=== PATIENT | female | born 1985 | race African-American/Black ===

== ENCOUNTER 2016-09-02 09:04 | Emergency (ER) | payer OTHER ==
[2016-09-02] MEDS ORDERED: NORMAL SALINE 1000 ML 1,000 ML IV ONE (09:53)
--- NOTE | 2016-09-02 09:58 | ER Document Report ---
ED General - General Chief Complaint: Vaginal Bleeding Stated Complaint: VAGINAL BLEEDING Notes: This is a 31-year-old female that presents today with vaginal bleeding that started this morning. She states that at 0430 this morning she was getting ready for work, and she went to the bathroom to urinate. She noticed bright red blood on the toilet tissue. She then took a shower and the bleeding stopped. However at work at 0900, she again noticed blood on the tissue paper after wiping. She estimates approximately a teaspoon of blood both times. She admits to hypogastric and mid pelvic pain with no radiation. Denies nausea vomiting fever or chills. She is 12 weeks and follows with [facility]. TRAVEL OUTSIDE OF THE [place] IN LAST 30 DAYS: No COUNTRY TRAVELED TO/FROM: [facility] - Related Data Allergies/Adverse Reactions: No Known Allergies Allergy (Verified 08/04/16 18:40) Past Medical History - General Information source: Patient Last Menstrual Period: 05-25-16 - Social History Smoking Status: Never Smoker Chew tobacco use (# tins/day): No Frequency of alcohol use: None Drug Abuse: None Family History: Reviewed & Not Pertinent Patient has suicidal ideation: No Patient has homicidal ideation: No - Past Medical History Cardiac Medical History: Reports: Hx Hypertension Surgical Hx: Negative - Immunizations Hx Diphtheria, Pertussis, Tetanus Vaccination: Yes Review of Systems - Review of Systems Constitutional: denies: Chills, Fever EENT: denies: Blurred vision Cardiovascular: denies: Chest pain Respiratory: denies: Short of breath Gastrointestinal: Abdominal pain - hypogastric and mid pelvic.. denies: Vomiting, Black stools Female Genitourinary: Musculoskeletal: denies: Leg swelling, Ankle swelling Hematologic/Lymphatic: denies: Anemia Physical Exam - Vital signs Vitals: Temp Pulse Resp BP Pulse Ox 98.1 F 73 18 135/86 H 100 09/02/16 09:07 09/02/16 09:07 09/02/16 09:07 09/02/16 09:07 09/02/16 09:07 - General General appearance: Appears well - Respiratory Respiratory status: No respiratory distress. No: Retractions Chest status: Nontender. No: Tender Breath sounds: Normal. No: Rales, Rhonchi, Stridor, Wheezing - Cardiovascular Rhythm: Regular Heart sounds: Normal auscultation, S1 appreciated, S2 appreciated - Abdominal Inspection: Normal Distension: No: Distended Bowel sounds: Normal Tenderness: Tender - hypogastric and mid pelvis. - Back Back: Normal. No: Tender - Extremities General lower extremity: Normal inspection. No: Edema - No edema bilaterally. - Psychological Associated symptoms: Normal affect - Skin Skin Temperature: Warm Skin Moisture: Dry Skin Color: Normal Course - Re-evaluation Re-evalutation: 09/02/16 13:00 Patient stated that she has a follow-up appointment with [facility] September 12. She was made aware of both the cyst and fibroids on transvaginal ultrasound. She was given multiple opportunities to ask questions. - Vital Signs Vital signs: Temp Pulse Resp BP Pulse Ox 97.4 F 80 15 123/73 98 09/02/16 12:40 09/02/16 12:40 09/02/16 12:40 09/02/16 12:40 09/02/16 12:40 - Laboratory Result Diagrams: 09/02/16 10:05 09/02/16 10:05 Laboratory results interpreted by me: 09/02/16 09/02/16 09/02/16 10:05 10:05 11:45 WBC 12.0 H Seg Neutrophils % 82.5 H Lymphocytes % 12.0 L Absolute Neutrophils 9.9 H BUN 6 L Beta HCG, Quant 91977.00 H Urine Ketones 20 H Discharge - Discharge Clinical Impression: Adnexal mass Uterine fibroid Qualifiers: Uterine leiomyoma location: intramural Qualified Code(s): D25.1 - Intramural leiomyoma of uterus Condition: Stable Disposition: HOME, SELF-CARE Additional Instructions: Follow-up with mold burner and primary care physician. Return to emergency department if symptoms worsen. Discuss with your mold burner the findings on ultrasound. Referrals: VICTOR HUGO CABRERA MD [Primary Care Provider] - Follow up as needed
[2016-09-02 10:21] LABS: ABSOLUTE LYMPHOCYTES (AUTO) 1.4 10^3/uL (0.5-4.7); ABSOLUTE MONOCYTES (AUTO) 0.6 10^3/uL (0.1-1.4); ABSOLUTE NEUT (AUTO) 9.9 10^3/uL (1.7-8.2); BASOPHILS % (AUTO) 0.2 % (0-2); EOSINOPHILS % (AUTO) 0.2 % (0-6); HEMATOCRIT 37.1 % (36.0-47.0); HEMOGLOBIN 12.8 g/dL (12.0-15.5); HGB HCT DIFFERENCE 1.3; MEAN CORPUSCULAR HEMOGLOBIN 28.9 pg (27.0-33.4); MEAN CORPUSCULAR HGB CONC 34.4 g/dL (32.0-36.0); MEAN CORPUSCULAR VOLUME 84 fl (80-97); MONOCYTES % (AUTO) 5.1 % (3-13); RED BLOOD COUNT 4.42 10^6/uL (3.72-5.28); RED CELL DISTRIBUTION WIDTH 12.8 % (11.5-14.0); SEGMENTED NEUTROPHILS % (AUTO) 82.5 % (42-78)
[2016-09-02 10:37] LABS: PARTIAL THROMBOPLASTIN TIME 27.2 SEC (23.5-35.8); PROTHROMBIN TIME 13.6 SEC (11.4-15.4)
[2016-09-02 10:41] LABS: ALANINE AMINOTRANSFERASE 38 U/L (9-52); ALBUMIN 3.6 g/dL (3.5-5.0); ALKALINE PHOSPHATASE 72 U/L (38-126); ANION GAP 11 (5-19); ASPARTATE AMINO TRANSFERASE 18 U/L (14-36); BILIRUBIN,TOTAL 0.6 mg/dL (0.2-1.3); BLOOD UREA NITROGEN 6 mg/dL (7-20); CARBON DIOXIDE 25 mmol/L (22-30); CHLORIDE 102 mmol/L (98-107); CREATININE RESULT 0.61 mg/dL (0.52-1.25); GLUCOSE 80 mg/dL (75-110); SODIUM 137.8 mmol/L (137-145); TOTAL PROTEIN 6.7 g/dL (6.3-8.2)
[2016-09-02 12:41] LABS: APPEARANCE,URINE CLEAR; BILIRUBIN,URINE NEGATIVE (NEGATIVE); GLUCOSE, URINE NEGATIVE (NEGATIVE); KETONES,URINE 20 mg/dL (NEGATIVE); LEUKOCYTE ESTERASE,URINE NEGATIVE (NEGATIVE); NITRITE,URINE NEGATIVE (NEGATIVE); PROTEIN,URINE NEGATIVE (NEGATIVE); URINE SPECIFIC GRAVITY 1.009; UROBILINOGEN,URINE NEGATIVE mg/dL (<2.0)
[2016-09-02 13:38] VITALS: BP 123/73
== END 2016-09-02 12:40 | disposition home or self-care (01) ==
LOC: ER 09:04
DX: O34.11 Maternal care for benign tumor of corpus uteri, first trimester (principal); D25.1 Intramural leiomyoma of uterus; O34.81 Maternal care for other abnormalities of pelvic organs, first trimester; N83.292 Other ovarian cyst, left side; O26.891 Other specified pregnancy related conditions, first trimester; R10.2 Pelvic and perineal pain; O16.1 Unspecified maternal hypertension, first trimester; Z3A.12 12 weeks gestation of pregnancy
CPT/HCPCS: 99284; 96360; 86900; 86901; 36415; 86850; 84702; 85025; 85610; 85730; 80053; 81001; 76801; 93976; J7030

== ENCOUNTER 2016-10-15 15:28 | Emergency (ER) | payer OTHER ==
--- NOTE | 2016-10-15 16:06 | ER Document Report ---
ED Medical Screen (RME) - General Chief Complaint: Abdominal Pain Stated Complaint: ABDOMINAL PAIN Time seen by provider: 16:03 Mode of Arrival: Ambulatory Information source: Patient Notes: 31-year-old hypertensive (tx with methyldopa) G1 female 19 weeks ( no complications so far) developed constant sharp right lower quadrant abdominal pain all she was at work. No back pain. No nausea vomiting or diarrhea. No vaginal bleeding. When she urinated and the pain worse. No history of kidney stones. No Fever. Last ultrasound was the 2015. Primary care provider is [facility] I have greeted and performed a rapid initial assessment of this patient. A comprehensive ED assessment, evaluation of the patient, analysis of test results , and completion of the medical decision making process will be conducted by additional ED providers.. TRAVEL OUTSIDE OF THE [place] IN LAST 30 DAYS: No COUNTRY TRAVELED TO/FROM: [facility] - Related Data Allergies/Adverse Reactions: No Known Allergies Allergy (Verified 08/04/16 18:40) Past Medical History - Past Medical History Cardiac Medical History: Reports: Hx Hypertension - Immunizations Hx Diphtheria, Pertussis, Tetanus Vaccination: Yes Physical Exam - Vital signs Vitals: Temp Pulse Resp BP Pulse Ox 98.3 F 84 18 114/67 98 10/15/16 15:48 10/15/16 15:48 10/15/16 15:48 10/15/16 15:48 10/15/16 15:48 Course - Vital Signs Vital signs: Temp Pulse Resp BP Pulse Ox 98.3 F 84 18 114/67 98 10/15/16 15:48 10/15/16 15:48 10/15/16 15:48 10/15/16 15:48 10/15/16 15:48
[2016-10-15 17:28] LABS: ABSOLUTE EOSINOPHILS # (AUTO) 0.1 10^3/uL (0.0-0.6); ABSOLUTE LYMPHOCYTES (AUTO) 1.5 10^3/uL (0.5-4.7); ABSOLUTE MONOCYTES (AUTO) 0.7 10^3/uL (0.1-1.4); ABSOLUTE NEUT (AUTO) 11.7 10^3/uL (1.7-8.2); BASOPHILS % (AUTO) 0.2 % (0-2); EOSINOPHILS % (AUTO) 0.4 % (0-6); HEMATOCRIT 36.7 % (36.0-47.0); HEMOGLOBIN 12.5 g/dL (12.0-15.5); HGB HCT DIFFERENCE 0.8; LYMPHOCYTES % (AUTO) 10.8 % (13-45); MEAN CORPUSCULAR HGB CONC 34.1 g/dL (32.0-36.0); MEAN CORPUSCULAR VOLUME 85 fl (80-97); MONOCYTES % (AUTO) 5.2 % (3-13); RED BLOOD COUNT 4.31 10^6/uL (3.72-5.28); RED CELL DISTRIBUTION WIDTH 13.1 % (11.5-14.0); SEGMENTED NEUTROPHILS % (AUTO) 83.4 % (42-78); WHITE BLOOD COUNT 14.1 10^3/uL (4.0-10.5)
[2016-10-15 17:43] LABS: ALANINE AMINOTRANSFERASE 20 U/L (9-52); ALKALINE PHOSPHATASE 80 U/L (38-126); ANION GAP 10 (5-19); ASPARTATE AMINO TRANSFERASE 18 U/L (14-36); BILIRUBIN,TOTAL 0.7 mg/dL (0.2-1.3); BLOOD UREA NITROGEN 6 mg/dL (7-20); CALCIUM 9.5 mg/dL (8.4-10.2); CARBON DIOXIDE 23 mmol/L (22-30); CHLORIDE 104 mmol/L (98-107); CREATININE RESULT 0.58 mg/dL (0.52-1.25); GLUCOSE 77 mg/dL (75-110); SODIUM 136.5 mmol/L (137-145); TOTAL PROTEIN 6.9 g/dL (6.3-8.2)
[2016-10-15] MEDS ORDERED: ACETAMINOPHEN 325 MG TABLET PO ONE (18:31)
--- NOTE | 2016-10-15 18:33 | ER Document Report ---
ED GI/ - General Chief Complaint: Abdominal Pain Stated Complaint: ABDOMINAL PAIN Time seen by provider: 18:32 Mode of Arrival: Ambulatory Information source: Patient TRAVEL OUTSIDE OF THE [place] IN LAST 30 DAYS: No COUNTRY TRAVELED TO/FROM: [facility] - HPI Patient complains to provider of: Pelvic pain, Onset: This morning Timing/Duration: Persistent Quality of pain: Sharp, Stabbing Severity at maximum: Severe Severity in ED: Moderate Pain Level: 5 Location: Pelvis Vaginal bleeding (Compared to normal period): None Menstrual period history: Associated symptoms: None Exacerbated by: Movement, Walking Relieved by: Denies Similar symptoms previously: No Recently seen / treated by doctor: Yes Notes: 10/15/16 18:32 Patient is a 31-year-old female who is in approximately 19 weeks presenting to the emergency room complaining of sharp stabbing right-sided pelvic pain that started this morning, it has worsened throughout the day, she denies any vaginal bleeding or discharge, no nausea, vomiting or diarrhea, no fever or chills, she does report pain with urination, she denies a history of similar symptoms previously, she is followed by [facility] and has had an uneventful until today - Related Data Allergies/Adverse Reactions: No Known Allergies Allergy (Verified 08/04/16 18:40) Past Medical History - General Information source: Patient - Social History Smoking Status: Unknown if Ever Smoked Family History: Reviewed & Not Pertinent Patient has suicidal ideation: No Patient has homicidal ideation: No - Past Medical History Cardiac Medical History: Reports: Hx Hypertension Renal/ Medical History: Denies: Hx Peritoneal Dialysis - Immunizations Hx Diphtheria, Pertussis, Tetanus Vaccination: Yes Review of Systems - Review of Systems Constitutional: No symptoms reported EENT: No symptoms reported Cardiovascular: No symptoms reported Respiratory: No symptoms reported Gastrointestinal: No symptoms reported Genitourinary: See HPI Female Genitourinary: See HPI Musculoskeletal: No symptoms reported Skin: No symptoms reported Hematologic/Lymphatic: No symptoms reported Neurological/Psychological: No symptoms reported -: Yes All other systems reviewed and negative Physical Exam - Vital signs Vitals: Temp Pulse Resp BP Pulse Ox 98.3 F 84 18 114/67 98 10/15/16 15:48 10/15/16 15:48 10/15/16 15:48 10/15/16 15:48 10/15/16 15:48 Interpretation: Normal - General General appearance: Appears well, Alert - HEENT Head: Normocephalic, Atraumatic Eyes: Normal Pupils: PERRL - Respiratory Respiratory status: No respiratory distress Chest status: Nontender Breath sounds: Normal Chest palpation: Normal - Cardiovascular Rhythm: Regular Heart sounds: Normal auscultation Murmur: No - Abdominal Inspection: Normal, Gravid female Distension: No distension Bowel sounds: Normal Tenderness: Tender - Right pelvis Organomegaly: No organomegaly - Back Back: Normal, Nontender - Extremities General upper extremity: Normal inspection, Nontender, Normal color, Normal ROM , Normal temperature General lower extremity: Normal inspection, Nontender, Normal color, Normal ROM , Normal temperature, Normal weight bearing. No: Gene's sign - Neurological Neuro grossly intact: Yes Cognition: Normal Orientation: AAOx4 Breezy Coma Scale Eye Opening: Spontaneous [place] Coma Scale Verbal: Oriented [place] Coma Scale Motor: Obeys Commands Breezy Coma Scale Total: 15 Speech: Normal Motor strength normal: LUE, RUE, LLE, RLE Sensory: Normal - Psychological Associated symptoms: Normal affect, Normal mood - Skin Skin Temperature: Warm Skin Moisture: Dry Skin Color: Normal Course - Re-evaluation Re-evalutation: 10/15/16 19:22 Patient was discussed with on-call CORRECTIONAL PROGRAM SPECIALIST, Dr. Reyes, labs, physical exam findings and ultrasound findings were discussed with her, she recommends patient be started on Indocin and Carafate for treatment of her likely involuting fibroid, which she states can be painful while the uterus is stretching and growing from , she recommends patient also follow-up in the office tomorrow or the next day for further evaluation and treatment, this plan was discussed with patient and mother at bedside who acknowledge understanding and agreement - Vital Signs Vital signs: Temp Pulse Resp BP Pulse Ox 98.3 F 84 18 114/67 98 10/15/16 15:48 10/15/16 15:48 10/15/16 15:48 10/15/16 15:48 10/15/16 15:48 - Laboratory Result Diagrams: 10/15/16 17:14 10/15/16 17:14 Laboratory results interpreted by me: 10/15/16 10/15/16 10/15/16 17:14 17:14 18:39 WBC 14.1 H Seg Neutrophils % 83.4 H Lymphocytes % 10.8 L Absolute Neutrophils 11.7 H Sodium 136.5 L BUN 6 L Urine Ketones 80 H Urine Ascorbic Acid 40 H - Diagnostic Test Radiology reviewed: Image reviewed, Reports reviewed Discharge - Discharge Clinical Impression: Pelvic pain affecting Uterine fibroid Qualifiers: Uterine leiomyoma location: unspecified location Qualified Code(s): D25.9 - Leiomyoma of uterus, unspecified Condition: Stable Disposition: HOME, SELF-CARE Instructions: Pelvic Pain in ([facility] ([facility]) Additional Instructions: Follow up with your CORRECTIONAL PROGRAM SPECIALIST in the next 1-2 days. Return to the emergency room immediately if symptoms worsen or any additional concerns. Prescriptions: Indomethacin [Indocin 25 Mg Capsule] 25 mg PO TID #30 capsule Sucralfate [Carafate Susp 1 Gm/10 Ml Udcup] 1 gm PO DAILY #30 udc Forms: Return to Work
[2016-10-15 18:50] LABS: APPEARANCE,URINE SLIGHTLY-CLOUDY; BILIRUBIN,URINE NEGATIVE (NEGATIVE); GLUCOSE, URINE NEGATIVE (NEGATIVE); KETONES,URINE 80 mg/dL (NEGATIVE); LEUKOCYTE ESTERASE,URINE NEGATIVE (NEGATIVE); NITRITE,URINE NEGATIVE (NEGATIVE); PROTEIN,URINE NEGATIVE (NEGATIVE); URINE SPECIFIC GRAVITY 1.019; UROBILINOGEN,URINE NEGATIVE mg/dL (<2.0)
[2016-10-15] MEDS ORDERED: SUCRALFATE SUSP 1 GM/10 ML UDCUP PO ONE (19:25)
[2016-10-15] MEDS ORDERED: INDOMETHACIN 25 MG CAPSULE PO ONE (19:30)
[2016-10-15 19:40] VITALS: BP 131/76
== END 2016-10-15 19:40 | disposition home or self-care (01) ==
LOC: ER 15:28
DX: O34.13 Maternal care for benign tumor of corpus uteri, third trimester (principal); O26.893 Other specified pregnancy related conditions, third trimester; D25.9 Leiomyoma of uterus, unspecified; R10.2 Pelvic and perineal pain; O16.3 Unspecified maternal hypertension, third trimester; Z3A.00 Weeks of gestation of pregnancy not specified
CPT/HCPCS: 36415; 76705; 76815; 80053; 81001; 85025; 86900; 86901; 87086; 99284

== ENCOUNTER 2016-10-22 15:18 | Inpatient (IN) | payer OTHER ==
--- NOTE | 2016-10-22 16:01 | L&D Flow Sheet ---
LD Flowsheet Datetime Report Generated by CPN: 10/22/2016 16:00 Datetime: 10/22/2016 15:55 Vaginal Exam Vaginal Bleeding: None (Katrina Shiv, RNC)
[2016-10-22 16:31] LABS: AMNISURE (ROM) POSITIVE (NEGATIVE)
[2016-10-22 16:40] LABS: APPEARANCE,URINE SLIGHTLY-CLOUDY; BILIRUBIN,URINE NEGATIVE (NEGATIVE); GLUCOSE, URINE NEGATIVE (NEGATIVE); KETONES,URINE NEGATIVE (NEGATIVE); LEUKOCYTE ESTERASE,URINE NEGATIVE (NEGATIVE); NITRITE,URINE NEGATIVE (NEGATIVE); PROTEIN,URINE NEGATIVE (NEGATIVE); URINE SPECIFIC GRAVITY 1.005; UROBILINOGEN,URINE NEGATIVE mg/dL (<2.0)
[2016-10-22 17:00] LABS: URINE BARBITURATES SCREEN NEGATIVE; URINE METHADONE SCREEN NEGATIVE; URINE OPIATES LOW NEGATIVE; URINE PHENCYCLIDINE SCREEN NEGATIVE
[2016-10-22 17:26] LABS: ABSOLUTE LYMPHOCYTES (AUTO) 2.1 10^3/uL (0.5-4.7); ABSOLUTE MONOCYTES (AUTO) 0.8 10^3/uL (0.1-1.4); ABSOLUTE NEUT (AUTO) 10.9 10^3/uL (1.7-8.2); BASOPHILS % (AUTO) 0.2 % (0-2); EOSINOPHILS % (AUTO) 0.3 % (0-6); HEMATOCRIT 37.2 % (36.0-47.0); HEMOGLOBIN 12.7 g/dL (12.0-15.5); HGB HCT DIFFERENCE 0.9; LYMPHOCYTES % (AUTO) 15.3 % (13-45); MEAN CORPUSCULAR HGB CONC 34.2 g/dL (32.0-36.0); MEAN CORPUSCULAR VOLUME 85 fl (80-97); RED BLOOD COUNT 4.39 10^6/uL (3.72-5.28); RED CELL DISTRIBUTION WIDTH 13.1 % (11.5-14.0); SEGMENTED NEUTROPHILS % (AUTO) 78.2 % (42-78); WHITE BLOOD COUNT 13.9 10^3/uL (4.0-10.5)
--- NOTE | 2016-10-22 18:01 | L&D Flow Sheet ---
LD Flowsheet Datetime Report Generated by CPN: 10/22/2016 18:00 Datetime: 10/22/2016 17:20 Communication Comments: Dr Reyes at bedside (Sonali Rudd RN) Datetime: 10/22/2016 16:52 NBP Sys/Kayy/Mean (mmHg): 120 (Sonali Rudd RN) : 75 (Sonali Rudd RN) : 86 (Sonali Rudd RN) Pulse: 101 (Sonali Rudd RN) Respirations: 18 (Sonali Rudd RN) SpO2 (%): 99 (Sonali Rudd RN) Temperature (F): 97.9 (Sonali Rudd RN) Temperature (C): 36.6 (QS system process) Temperature Route: Axillary (Sonali Rudd RN) LaborFlag: Antepartum (QS system process) Datetime: 10/22/2016 16:45 Additional Nursing Comments: Report to Sonali Rudd RN care relinquished. (GABRIELE Candelaria) Datetime: 10/22/2016 16:40 Consults: ultrasound at bedside. FHT 150's. Pt and family questioning what happens now. Plan of care discussed. Dr. Mercado consulting Clinton Cardenas regarding possible transfer. (GABRIELE Candelaria) Datetime: 10/22/2016 16:32 Dilatation (cm): 2.0 (Katrina Chaney, RNC) Effacement (%): 50 (Katrina Chaney, RNC) Station: -2 (Katrina Chaney RNNaga) Exam by: tony Saeed CNM (Katrina Chaney, RNNaga) Membrane Status: Ruptured (GABRIELE Candelaria) Membranes Ruptured Date/Time: 10/22/2016 14:30 (GABRIELE Candelaria) Membranes Rupture Method: Spontaneous (GABRIELE Candelaria) Amniotic Fluid Color: Clear (Katrina Chaney, RNC) Cervix, Consistency: Soft (Katrina Chaney, RNC) Cervix, Position: Anterior (Katrina Chaney, RNC) Presentation 'A': Breech (GABRIELE Candelaria) Vaginal Exam Comments: vag exam per tony saeed cnm (Katrina Chaney, RNC) Dilatation (cm): 1-2 cm (Katrina Chaney, RNC) Effacement: 40-50_ effaced (Katrina Chaney, RNC) Station: minus 2 (Katrina Chaney, RNC) Consistency: Soft (Katrina Chaney, RNC) Position: Midposition (Katrina Chaney, RNC) Total Frank's Score: 6 (QS system process) : 5-8 = Small percentage of induction failure (QS system process) Level of Consciousness: Fully Conscious (Katrina Chaney, RNC) Patient Position/Activity: Right Lateral (Katrina Chaney, RNC) Patient Care Comments: provider at bedside (GABRIELE Candelaria) Datetime: 10/22/2016 16:30 Monitor Mode: External US (Katrina Chaney RNC) FHR Baseline Rate : 150 (Annotations: unable to keep tracing continuous. Appears to be deceling to the 50's. Maternal pulse 76. A Emmel CNM notified.) (Katrina Chaney, RNC) Datetime: 10/22/2016 16:10 Frequency (min): 0 (Katrina Chaney, RNC) Resting Tone (Palpate): Relaxed (Annotations: palpated) (Katrina Chaney RNC) Pain Scale: 0 (Katrina Chaney RNC) Pain Presence: None/Denies (Katrina Chaney, RNC) Pain Type: N/A (Katrina Chaney, RNC) Pain Coping: Talking Through Contractions (Katrina Chaney RNC) Vaginal Bleeding: None (Katrina Chaney, RNC) Level of Consciousness: Fully Conscious (Katrina Chaney, RNC) DTR's/Clonus: DTRs 2+ (Katrina Chaney, RNC) Headache: Denies (Katrina Chaney, RNC) Breath Sounds, Left: Clear and Equal (Katrina Chaney, RNC) Breath Sounds, Right: Clear and Equal (Katrina Shiv, RNC) Nausea/Vomiting: Denies (Katrina Chaney, RNC) RUQ Epigastric Pain: Denies (Katrina Chaney, RNC) LaborFlag: Antepartum (QS system process) Datetime: 10/22/2016 16:04 Stage of : Antepartum (Sonali Rudd, SHUKRI)
[2016-10-22] MEDS: RINGERS SOLUTION,LACTATED 1,000 ML IV PRN (18:47)
--- NOTE | 2016-10-22 20:01 | L&D Flow Sheet ---
LD Flowsheet Datetime Report Generated by CPN: 10/22/2016 20:00 Datetime: 10/22/2016 19:30 Monitor Mode: External; Palpation (Crystal [place], RN) Frequency (min): 5-5.5 (Crystal [place], RN) Quality: Mild (Crystal Keysha, RN) Duration (sec): 50-60 (Crystal [place], RN) Duration Criteria: Less than Two 120 Second Contractions (Crystal [place], RN) Resting Tone (Palpate): Relaxed (Crystal [place], RN) Patient Position/Activity: Semi-Fowlers (Crystal Keysha, RN) I/O Interventions: Clear Liquids Given (Crystal [place], RN) Datetime: 10/22/2016 19:29 Level of Consciousness: Fully Conscious (Crystal Keysha, RN) DTR's/Clonus: DTRs 2+; No Clonus (Crystal Keysha, RN) Headache: Denies (Crystal Keysha, RN) Breath Sounds, Left: Clear and Equal (Crystal [place], RN) Breath Sounds, Right: Clear and Equal (Crystal [place], RN) Nausea/Vomiting: Denies (Crystal [place], RN) Datetime: 10/22/2016 19:00 Monitor Mode: External; Palpation (Sonali Tobin, RN) Frequency (min): Irreg (Sonali Tobin, RN) Quality: Mild (Sonali Tobin, RN) Duration (sec): 30-50 (Sonali Tobin, RN) Resting Tone (Palpate): Relaxed (Sonali Tobin, RN) Datetime: 10/22/2016 18:58 Patient Care Comments: Meal provided (Sonali Tobin, RN) Datetime: 10/22/2016 18:30 Monitor Mode: External; Palpation (Sonali Tobin, RN) Frequency (min): Irreg (Sonali Tobin, RN) Quality: Mild (Sonali Tobin, RN) Duration (sec): 30-40 (Sonali Tobin, RN) Resting Tone (Palpate): Relaxed (Sonali Tobin, RN) Datetime: 10/22/2016 18:18 Patient Care Comments: SCD applied (Sonali Tobin, RN) Datetime: 10/22/2016 18:01 Communication Comments: Brandyn Freed CNM at bedside (Sonali Rudd RN) Datetime: 10/22/2016 18:00 Temperature (F): 98.3 (Sonali Rudd RN) Temperature (C): 36.8 (QS system process) Temperature Route: Oral (Sonali Rudd RN) Monitor Mode: External; Palpation (Sonali Rudd RN) Frequency (min): Irreg (Sonali Rudd RN) Quality: Mild (Sonali Rudd RN) Duration (sec): 30-40 (Sonali Rudd RN) Resting Tone (Palpate): Relaxed (Sonali Rudd RN) LaborFlag: Antepartum (QS system process)
[2016-10-22] MEDS ORDERED: METHYLDOPA 250 MG TABLET ONE (21:24)
[2016-10-22] MEDS ORDERED: METHYLDOPA 250 MG TABLET PO SCH (22:00)
--- NOTE | 2016-10-22 22:01 | L&D Flow Sheet ---
LD Flowsheet Datetime Report Generated by CPN: 10/22/2016 22:00 Datetime: 10/22/2016 21:30 Monitor Mode: External; Palpation (Crystal Novi, RN) Frequency (min): Irregular (Crystal Novi, RN) Quality: Mild (Crystal Novi, RN) Resting Tone (Palpate): Relaxed (Crystal Keysha, RN) Contraction Comments: Pt denies feeling any contractions. (Crystal Keysha, RN) Datetime: 10/22/2016 21:26 Medication Comments: 250 mg Aldomet PO per order. (Crystal Keysha, RN) Datetime: 10/22/2016 21:00 Monitor Mode: External; Palpation (Crystal Keysha, RN) Frequency (min): Irregular (Crystal Keysha, RN) Quality: Mild (Crystal Keysha, RN) Duration (sec): 40-60 (Crystal Keysha, RN) Resting Tone (Palpate): Relaxed (Crystal Keysha, RN) Contraction Comments: Pt denies feeling any contractions or pain. (Crystal Keysha, RN) Datetime: 10/22/2016 20:30 Monitor Mode: External; Palpation (Crystal Keysha, RN) Frequency (min): Irregular (Crystal Novi, RN) Quality: Mild (Crystal Novi, RN) Resting Tone (Palpate): Relaxed (Crystal Keysha, RN) Patient Position/Activity: Trendelenburg (Crystal Keysha, RN) Datetime: 10/22/2016 20:00 NBP Sys/Kayy/Mean (mmHg): 123 (Crystal Keysha, RN) : 75 (Crystal Keysha, RN) Pulse: 79 (Crystal Novi, RN) Respirations: 18 (Crystal Keysha, RN) SpO2 (%): 100 (Crystal Novi, RN) Temperature (F): 98.0 (Crystal Novi, RN) Temperature (C): 36.7 (QS system process) Monitor Mode: External; Palpation (Kristi Chopra, RN) Frequency (min): IRR (Kristi Novi, RN) Quality: Mild (Crystal Novi, RN) Duration (sec): 40-60 (Crystal Keysha, RN) Resting Tone (Palpate): Relaxed (Kristi Keysha, RN) Contraction Comments: Pt denies feeling any contractions. (Kristi Chopra, RN) Nausea/Vomiting: Denies (Kristi Chopra, RN) Patient Position/Activity: Trendelenburg (Kristi Chopra, RN) LaborFlag: Antepartum (QS system process)
--- NOTE | 2016-10-23 07:45 | L&D Progress Notes ---
PROGRESS NOTES Datetime Report Generated by CPN: 10/23/2016 07:45 PROGRESS NOTE Impression: Premature Rupture of Membranes Procedures: Sterile Vag Exam Plan: Induction Informed Consent Obtained: Vaginal Delivery; Risks, Benefits and Alternatives Discussed Vital Signs : Reviewed; Within Normal Limits Comment: Unable to find FHR on bedside doppler this am. Bedside US done and anhydramnios with no FHR noted. Formal US requested for evaluation and report returned as No FHR noted. REviewed IOL with pt and also reviewed degenerating fibroid with pt. Pain meds as needed. Will try cytotec 50mcg po q 4 hours and change indxn meds as needed. Pt tearful but understands diagnosis. membranes and cord already in vagina. Reviewed poss need for D_C if need for removal of placenta. Nursing aware and we will try to move pt to a more isolated room away from laboring patients. VAGINAL EXAM Dilatation: 1 Effacement: 25 Station: -3 MEMBRANES Membranes: Ruptured Amniotic Fluid Color: Clear FETUS A Monitoring: External US SIGNATURE SIGNATURE: [id number] Signature: with User ID: [email or web address]
[2016-10-23 07:51] LABS: ABSOLUTE LYMPHOCYTES (AUTO) 1.4 10^3/uL (0.5-4.7); ABSOLUTE MONOCYTES (AUTO) 0.7 10^3/uL (0.1-1.4); ABSOLUTE NEUT (AUTO) 10.5 10^3/uL (1.7-8.2); BASOPHILS % (AUTO) 0.2 % (0-2); EOSINOPHILS % (AUTO) 0.4 % (0-6); HEMATOCRIT 30.9 % (36.0-47.0); HEMOGLOBIN 10.8 g/dL (12.0-15.5); HGB HCT DIFFERENCE 1.5; LYMPHOCYTES % (AUTO) 10.9 % (13-45); MEAN CORPUSCULAR HEMOGLOBIN 29.4 pg (27.0-33.4); MEAN CORPUSCULAR HGB CONC 34.9 g/dL (32.0-36.0); MEAN CORPUSCULAR VOLUME 84 fl (80-97); MONOCYTES % (AUTO) 5.9 % (3-13); RED BLOOD COUNT 3.67 10^6/uL (3.72-5.28); RED CELL DISTRIBUTION WIDTH 12.9 % (11.5-14.0); SEGMENTED NEUTROPHILS % (AUTO) 82.6 % (42-78); WHITE BLOOD COUNT 12.7 10^3/uL (4.0-10.5)
[2016-10-23] MEDS ORDERED: MISOPROSTOL 0.1 MG TABLET PO SCH (08:00)
--- NOTE | 2016-10-23 08:01 | L&D Flow Sheet ---
LD Flowsheet Datetime Report Generated by CPN: 10/23/2016 08:00 Datetime: 10/23/2016 07:12 Stage of : Antepartum (Crystal [place], RN) Communication: Report Given to @ Chintan Whitmore, RN (Crystal Keysha, RN) Notification Reason: Status Update (Crystal Keysha, RN) Datetime: 10/23/2016 06:36 Frequency (min): 0 (Crystal [place], RN) Resting Tone (Palpate): Relaxed (Crystal Keysha, RN) Contraction Comments: Pt denies feeling any contractions. (Crystal Keysha, RN) Datetime: 10/23/2016 05:32 Communication Comments: Dr. Reyes at bedside for u/s (Savannah Santacruz RN) Datetime: 10/23/2016 04:12 NBP Sys/Kayy/Mean (mmHg): 121 (Kristi Godwinergrass, RN) : 73 (Crystal [place], RN) Pulse: 71 (Crystal [place], RN) Respirations: 18 (Crystal [place], RN) SpO2 (%): 100 (Crystal [place], RN) Temperature (F): 98.3 (Crystal [place], RN) Temperature (C): 36.8 (QS system process) Comments: RN attemped too assess FHR with doppler. (Kristi Chopra, RN) LaborFlag: Antepartum (QS system process) Datetime: 10/23/2016 04:00 Monitor Interventions for UA: Crumpler Adjusted (Crystal [place], RN) Frequency (min): 0 (Crystal Keysha, RN) Contraction Comments: Pt denies any contractions at this time (Crystal [place], RN) Datetime: 10/23/2016 03:00 Monitor Mode: External; Palpation (Crystal [place], RN) Frequency (min): 0 (Crystal [place], RN) Resting Tone (Palpate): Relaxed (Crystal [place], RN) Contraction Comments: Pt denies feeling any contractions. (Crystal Keysha, RN) Datetime: 10/23/2016 02:00 Monitor Mode: External; Palpation (Crystal Keysha, RN) Frequency (min): 0 (Crystal Keysha, RN) Resting Tone (Palpate): Relaxed (Crystal Keysha, RN) Contraction Comments: Pt denies feeling any contractions. (Crystal [place], RN) Datetime: 10/23/2016 01:30 Monitor Mode: External; Palpation (Crystal Keysha, RN) Frequency (min): 0 (Crystal Keysha, RN) Resting Tone (Palpate): Relaxed (Crystal Keysha, RN) Contraction Comments: Pt denies feeling any contractions at this time. (Crystal [place], RN) Datetime: 10/23/2016 01:00 Monitor Mode: External; Palpation (Crystal Keysha, RN) Frequency (min): 0 (Crystal Keysha, RN) Resting Tone (Palpate): Relaxed (Crystal [place], RN) Contraction Comments: Pt denies feeling any contractions at this time. (Crystal [place], RN) Datetime: 10/23/2016 00:30 Monitor Mode: External; Palpation (Crystal [place], RN) Frequency (min): 0 (Crystal Keysha, RN) Resting Tone (Palpate): Relaxed (Crystal [place], RN) Datetime: 10/23/2016 00:00 Monitor Mode: External; Palpation (Crystal Keysha, RN) Frequency (min): 0 (Crystal [place], RN) Resting Tone (Palpate): Relaxed (Crystal Keysha, RN) Datetime: 10/22/2016 23:58 NBP Sys/Kayy/Mean (mmHg): 120/76 (Marita Danish, RN) Pulse: 70 (Marita Danish, RN) Respirations: 14 (Marita Danish, RN) Temperature (F): 98.3 (Marita Danish, RN) Temperature (C): 36.8 (QS system process) Temperature Route: Oral (Marita Danish, RN) LaborFlag: Antepartum (QS system process) Datetime: 10/22/2016 22:30 Monitor Mode: External; Palpation (Crystal [place], RN) Frequency (min): Irregular (Crystal Keysha, RN) Quality: Mild (Crystal Keysha, RN) Resting Tone (Palpate): Relaxed (Crystal Keysha, RN) Contraction Comments: Pt denies feeling any contractions at this time (Crystal [place], RN) Datetime: 10/22/2016 22:00 Monitor Mode: Palpation (Crystal Keysha, RN) Frequency (min): 0 (Crystal Keysha, RN) Resting Tone (Palpate): Relaxed (Crystal Keysha, RN) Contraction Comments: Pt denies feeling any contractions at this time. pt reported light pink spots on her tissue after wiping. Will continue to monitor (Kristi Chopra RN) Patient Position/Activity: Supine (Kristi Chopra RN) I/O Interventions: Clear Liquids Given (Kristi Chopra RN)
[2016-10-23] MEDS ORDERED: MISOPROSTOL 0.1 MG TABLET ONE ×5 (08:10→19:56)
[2016-10-23] MEDS ORDERED: (PENDING PHARMACY ID) (Prenatal Vit/Iron Fumarate/Fa [Prenatal Tablet] 1 TAB) PO SCH (10:00)
[2016-10-23] MEDS ORDERED: PRENATAL VITAMIN W-O CA NO5/FE FUMARATE/FA CAPSULE PO SCH (10:00)
--- NOTE | 2016-10-23 10:01 | L&D Flow Sheet ---
LD Flowsheet Datetime Report Generated by CPN: 10/23/2016 10:00 Datetime: 10/23/2016 09:00 Monitor Mode: External (Gema Haim, RNC) Frequency (min): Irr (Gema Haim, RNC) Quality: Mild (Gema Haim, RNC) Duration (sec): 40-50 (Gema Haim, RNC) Duration Criteria: Less than Two 120 Second Contractions (Gema Haim, RNC) Pattern: Normal: <= 5 Contractions in 10 Minutes (Gema Haim, RNC) Resting Tone (Palpate): Relaxed (Gema Haim, RNC) Datetime: 10/23/2016 08:20 Cervical Ripening Agents: Cytotec @ 50 mcg, PO (Gema Whitmore, RNC) Datetime: 10/23/2016 08:18 NBP Sys/Kayy/Mean (mmHg): 125 (QS system process) : 85 (QS system process) : 99 (QS system process) Pulse: 81 (QS system process) Temperature (F): 98.0 (Gema Whitmore, RNC) Temperature (C): 36.7 (QS system process) Temperature Route: Oral (Gema Whitmore, RNC) LaborFlag: Antepartum (QS system process) Datetime: 10/23/2016 08:12 Level of Consciousness: Fully Conscious (Gema Whitmore, RNC) DTR's/Clonus: DTRs 2+; No Clonus (Gema Whitmore, RNC) Headache: Denies (Gema Whitmore, RNC) Breath Sounds, Left: Clear and Equal (Gema Whitmore, RNC) Breath Sounds, Right: Clear and Equal (Gema Whitmore, RNC) Nausea/Vomiting: Denies (Gema Whitmore, RNC) RUQ Epigastric Pain: Denies (Gema Whitmore, RNC)
--- NOTE | 2016-10-23 12:01 | L&D Flow Sheet ---
LD Flowsheet Datetime Report Generated by CPN: 10/23/2016 12:00 Datetime: 10/23/2016 11:30 Monitor Mode: External (Gema Haim, RNC) Frequency (min): Irr (Gema Haim, RNC) Quality: Mild (Gema Haim, RNC) Duration (sec): 50-80 (Gema Haim, RNC) Duration Criteria: Less than Two 120 Second Contractions (Gema Haim, RNC) Resting Tone (Palpate): Relaxed (Gema Haim, RNC) Datetime: 10/23/2016 11:20 NBP Sys/Kayy/Mean (mmHg): 127 (QS system process) : 84 (QS system process) : 98 (QS system process) Pulse: 90 (QS system process) Respirations: 17 (Gema Haim, RNC) Temperature (F): 98.3 (Gema Haim, RNC) Temperature (C): 36.8 (QS system process) Temperature Route: Oral (Gema Haim, RNC) LaborFlag: Antepartum (QS system process) Datetime: 10/23/2016 11:00 Monitor Mode: External (Gema Haim, RNC) Frequency (min): Irr (Gema Haim, RNC) Duration (sec): 50-80 (Gema Haim, RNC) Resting Tone (Palpate): Relaxed (Gema Haim, RNC) Datetime: 10/23/2016 10:30 Monitor Mode: External (Gema Haim, RNC) Frequency (min): Irr (Gema Haim, RNC) Duration (sec): 30-50 (GABRIELE Paz) Resting Tone (Palpate): Relaxed (GABRIELE Paz) Datetime: 10/23/2016 10:00 Monitor Mode: External (GABRIELE Paz) Frequency (min): Irr (GABRIELE Paz) Resting Tone (Palpate): Relaxed (GABRIELE Paz)
[2016-10-23] MEDS ORDERED: METHYLDOPA 250 MG TABLET ONE (12:40)
[2016-10-23] MEDS ORDERED: SUCCINYLCHOLINE CHLORIDE INJ 200 MG/10 ML VIAL ONE (13:20)
--- NOTE | 2016-10-23 16:01 | L&D Flow Sheet ---
LD Flowsheet Datetime Report Generated by CPN: 10/23/2016 16:00 Datetime: 10/23/2016 15:30 Monitor Mode: External (Gema Haim, RNC) Frequency (min): 3-5 (Gema Haim, RNC) Duration (sec): 50-80 (Gema Haim, RNC) Resting Tone (Palpate): Relaxed (Gema Haim, RNC) Datetime: 10/23/2016 15:00 Monitor Mode: External (Gema Haim, RNC) Frequency (min): 2-+4 (Gema Haim, RNC) Quality: Mild (Gema Haim, RNC) Duration (sec): 30-50 (Gema Haim, RNC) Resting Tone (Palpate): Relaxed (Gema Haim, RNC) Datetime: 10/23/2016 14:30 Frequency (min): Irr (Gema Haim, RNC) Duration (sec): 20-40 (Gema Haim, RNC) Datetime: 10/23/2016 14:00 Monitor Mode: External (Gema Haim, RNC) Frequency (min): Irr (Gema Haim, RNC) Duration (sec): 20-30 (Gema Haim, RNC) Resting Tone (Palpate): Relaxed (Gema Haim, RNC) Datetime: 10/23/2016 13:30 Frequency (min): Irritability (Gema Haim, RNC) Duration (sec): 20-40 (Gema Haim, RNC) Datetime: 10/23/2016 13:00 Frequency (min): Irr (Gema Haim, RNC) Duration (sec): 20-40 (Gema Haim, RNC) Datetime: 10/23/2016 12:30 Monitor Mode: External (Gema Haim, RNC) Frequency (min): x1 (Gema Haim, RNC) Quality: Mild (Gema Haim, RNC) Duration (sec): 80 (Gema Whitmore, RNC) Resting Tone (Palpate): Relaxed (Gema Haim, RNC) Cervical Ripening Agents: Cytotec @ 50 mcg PO (GABRIELE Paz) Datetime: 10/23/2016 12:21 Dilatation (cm): 2.0 (GABRIELE Paz) Exam by: Dr. Estevez (Gema Whitmore, RNC) Cervical Ripening Agents: Cytotec @ 100 mcg PV (GABRIELE Paz) Communication: Provider at Bedside (GABRIELE Paz) Communication Comments: Dr. Estevez at BS, POC discussed with pt and family, all questions and concerns answered by MD and RN. Both pt and family verbalzied understanding and agreement with POC. (Gema Whitmore RNC)
[2016-10-23] MEDS ORDERED: MISOPROSTOL 0.2 MG TABLET ONE ×2 (16:10→19:57)
--- NOTE | 2016-10-23 18:01 | L&D Flow Sheet ---
LD Flowsheet Datetime Report Generated by CPN: 10/23/2016 18:00 Datetime: 10/23/2016 16:15 NBP Sys/Kayy/Mean (mmHg): 130 (QS system process) : 85 (QS system process) : 102 (QS system process) Pulse: 75 (QS system process) LaborFlag: Antepartum (QS system process)
[2016-10-23] MEDS ORDERED: PROMETHAZINE HCL INJ 25 MG/1 ML VIAL IV ONE ×2 (18:14→20:10)
[2016-10-23] MEDS ORDERED: NALBUPHINE HCL INJ 10 MG/1 ML AMPULE ONE ×2 (18:15→20:16)
[2016-10-23] MEDS ORDERED: PROMETHAZINE HCL INJ 25 MG/1 ML VIAL ONE ×2 (18:15→20:16)
[2016-10-23] MEDS ORDERED: NALBUPHINE HCL INJ 10 MG/1 ML AMPULE INJ ONE ×2 (18:15→20:10)
[2016-10-23] MEDS ORDERED: MISOPROSTOL 0.1 MG TABLET PO ONE (19:42)
[2016-10-23] MEDS ORDERED: MISOPROSTOL 0.2 MG TABLET PV ONE (19:42)
[2016-10-23] MEDS ORDERED: OXYTOCIN/NORMAL SALINE 0 UNIT/0 ML RTUINJ ONE (19:42)
[2016-10-23] MEDS ORDERED: AMPICILLIN SOD/SULBACTAM 3 GM VIAL IV ONE (20:00)
--- NOTE | 2016-10-23 20:01 | L&D Flow Sheet ---
LD Flowsheet Datetime Report Generated by CPN: 10/23/2016 20:00 Datetime: 10/23/2016 19:55 NBP Sys/Kayy/Mean (mmHg): 133 (QS system process) : 80 (QS system process) : 102 (QS system process) Pulse: 97 (QS system process) LaborFlag: Antepartum (QS system process) Datetime: 10/23/2016 19:40 NBP Sys/Kayy/Mean (mmHg): 148 (QS system process) : 97 (QS system process) : 118 (QS system process) Pulse: 114 (QS system process) LaborFlag: Antepartum (QS system process) Datetime: 10/23/2016 19:34 Communication Comments: Called Herb and let her know we need her to come to the unit. Provider on her way in. (Vero Paul RN) Datetime: 10/23/2016 19:20 Level of Consciousness: Lethargy (Annotations: Due to med given at 1830) (Marita Peng RN) Patient Care Comments: Pt had been sleeping soundly but tosses occasionally. Aroused for Josue Whitmore RN to say good by and for me to introduce myself. Instructed to report any increase in pressure on bottom. (Marita Peng, SHUKRI) Communication Comments: Report to Saul Peng RN, Josue Whitmore RNC out. (GABRIELE Paz) Datetime: 10/23/2016 19:00 Monitor Mode: External (Gema Haim, RNC) Frequency (min): irr (Gema Haim, RNC) Duration (sec): 20-40 (Gema Haim, RNC) Resting Tone (Palpate): Relaxed (Gema Haim, RNC) Datetime: 10/23/2016 18:30 Monitor Mode: External (Gema Haim, RNC) Frequency (min): irr (Gema Haim, RNC) Duration (sec): 20-40 (Gema Haim, RNC) Resting Tone (Palpate): Relaxed (Gema Haim, RNC) Datetime: 10/23/2016 18:29 Analgesics/Sedatives: Nubain (mg) @ 10, IVP; Phenergan (mg) @ 12.5, SIVP (Gema Whitmore RNC) Datetime: 10/23/2016 18:06 NBP Sys/Kayy/Mean (mmHg): 140 (QS system process) : 79 (QS system process) : 105 (QS system process) Pulse: 82 (QS system process) Respirations: 17 (GABRIELE Paz) Temperature (F): 99.0 (GABRIELE Paz) Temperature (C): 37.2 (QS system process) Temperature Route: Oral (GABRIELE Paz) Pain Scale: 4 (GABRIELE Paz) Pain Presence: Intermittent (Gema Whitmore RNC) Pain Type: Sharp; Contraction (Gema Whitmore RNC) Pain Location: Perineum (Gema Whitmore RNC) LaborFlag: Antepartum (QS system process) Datetime: 10/23/2016 18:00 Monitor Mode: External (Gema Whitmore RNC) Frequency (min): 3-4 (GABRIELE Paz) Duration (sec): 20-+40 (GABRIELE Paz) Resting Tone (Palpate): Relaxed (GABRIELE Paz)
[2016-10-23] MEDS ORDERED: AMPICILLIN SOD/SULBACTAM 3 GM VIAL ONE (20:09)
[2016-10-23] MEDS ORDERED: OXYTOCIN 10 UNIT/ML VIAL ONE (20:36)
[2016-10-23] MEDS ORDERED: FENTANYL CITRATE INJ/PF 250 MCG/5 ML AMPULE ONE (20:37)
[2016-10-23] MEDS ORDERED: OXYTOCIN/NORMAL SALINE 20 UNIT/1,000 ML RTUINJ ONE (20:37)
[2016-10-23] MEDS ORDERED: MIDAZOLAM 2 MG/2 ML INJ ONE (20:37)
[2016-10-23] MEDS ORDERED: FENTANYL CITRATE INJ/PF 100 MCG/2 ML AMPUL ONE (20:37)
[2016-10-23] MEDS ORDERED: EPHEDRINE SULFATE INJ 50 MG/1 ML AMPULE ONE (20:37)
[2016-10-23] MEDS ORDERED: ONDANSETRON HCL INJ/PF 4 MG/2 ML SDV ONE (20:37)
[2016-10-23] MEDS ORDERED: PROPOFOL INJ 200 MG/20 ML VIAL IV ONE (20:39)
[2016-10-23 21:48] LABS: HEMATOCRIT 24.9 % (36.0-47.0); HGB HCT DIFFERENCE 1.2; MEAN CORPUSCULAR HEMOGLOBIN 29.4 pg (27.0-33.4); MEAN CORPUSCULAR HGB CONC 35.1 g/dL (32.0-36.0); MEAN CORPUSCULAR VOLUME 84 fl (80-97); RED BLOOD COUNT 2.97 10^6/uL (3.72-5.28); RED CELL DISTRIBUTION WIDTH 12.6 % (11.5-14.0); WHITE BLOOD COUNT 18.1 10^3/uL (4.0-10.5)
--- NOTE | 2016-10-23 22:01 | L&D Flow Sheet ---
LD Flowsheet Datetime Report Generated by CPN: 10/23/2016 22:00 Datetime: 10/23/2016 21:59 NBP Sys/Kayy/Mean (mmHg): 146 (QS system process) : 81 (QS system process) : 107 (QS system process) Pulse: 121 (QS system process) Pulse: 117 (QS system process) SpO2 (%): 100 (QS system process) Datetime: 10/23/2016 21:54 NBP Sys/Kayy/Mean (mmHg): 143 (QS system process) : 78 (QS system process) : 104 (QS system process) Pulse: 127 (QS system process) Pulse: 126 (QS system process) SpO2 (%): 100 (QS system process) Datetime: 10/23/2016 21:49 Stage of : Recovery (Marita Peng RN) NBP Sys/Kayy/Mean (mmHg): 169 (QS system process) : 93 (QS system process) : 123 (QS system process) Pulse: 144 (QS system process) SpO2 (%): 98 (QS system process) Datetime: 10/23/2016 21:48 SpO2 (%): 82 (QS system process) LaborFlag: Antepartum (QS system process) Datetime: 10/23/2016 20:19 NBP Sys/Kayy/Mean (mmHg): 117 (QS system process) : 74 (QS system process) : 90 (QS system process) Pulse: 113 (QS system process) LaborFlag: Antepartum (QS system process) Datetime: 10/23/2016 20:18 Communication Comments: Spoke with Wendy, Sampling Expert, and informed her that per Dr. Estevez pt needs to go to OR for D_C due to bleeding. (Annotations: Data stored by [facility] on behalf of user) (Vero Paul RN) Datetime: 10/23/2016 20:14 Antibiotics: Unasyn (Gm) @ 3 (Alicia Errichiello, RN) Datetime: 10/23/2016 20:10 NBP Sys/Kayy/Mean (mmHg): 125 (QS system process) : 73 (QS system process) : 94 (QS system process) Pulse: 86 (QS system process) LaborFlag: Antepartum (QS system process) Datetime: 10/23/2016 20:00 Cervical Ripening Agents: Cytotec @ (Rosalind Estevez MD (ANDDO)) Cervical Ripening Agents: Cytotec @ 200 mcg pv (Marita Peng RN)
[2016-10-23 22:07] LABS: HEMOGLOBIN 8.7 g/dL (12.0-15.5)
[2016-10-23 22:11] LABS: BASOPHILS % (MANUAL) 0 % (0-2); EOSINOPHILS % (MANUAL) 0 % (0-6); LYMPHOCYTES % (MANUAL) 9 % (13-45); TOTAL CELLS COUNTED 100
--- NOTE | 2016-10-24 01:29 | OPERATIVE REPORT E ---
Operative Report NAME: WADE BURNETTE : 1985 AGE: 31Y DATE OF SURGERY: 10/23/2016 ROOM: LR200 PREOPERATIVE DIAGNOSIS: Retained placenta. POSTOPERATIVE DIAGNOSIS: Retained placenta. PROCEDURE PERFORMED: Dilation and curettage. SURGEON: MARSHAL TUBBS M.D. ANESTHESIA: Dr. Willis with general. FINDINGS: A 20-week size uterus with a well dilated cervix and a significant amount of blood in the vaginal vault at the start of the procedure of approximately 100 mL. PATHOLOGY: Placenta. PROCEDURE IN DETAIL: Patient was taken to the operating room, prepared and draped in a normal sterile fashion in dorsal lithotomy position. Under sterile conditions, an in and out cath was performed with approximately 200 mL of clear urine to pink. A sterile speculum was then placed into the vagina and the cervix was prepped with Betadine. The cervix was grasped with a single tooth tenaculum on the anterior lip of the cervix, and the cervix was dilated, using careful dilation with ring forceps. The uterus was carefully explored using a banjo curettage at this point with minimal return of placental products. Bleeding continued which made me suspicious of continued retained products. I did try to explore the uterus with a set of ring forceps and this still was a very little return of placental tissue. Small fragments were obtained only. I continued my careful exploration of the uterus using curettage with both banjo curettes as well as ring forceps with continued small fragments of placental tissue obtained only. I called for the bedside ultrasound machine and that was brought in which helped me with guidance; however, the patient had a large degenerating fibroid in the anterior portion of the uterus that was complicating the picture. I continued to curettage with the banjo curettage and interchanging with the ring forceps. Bleeding seemed to slow somewhat; however, I was still obtaining only fragments of tissue which became a little more concerning. Pitocin was begun as we had thought that we might discontinue the procedure due to lack of return of products and no change on the ultrasound. The ultrasound was taken away; however, I tried once more with the ring forceps and was able to grasp a portion of tissue, and then was able to tease the rest of the tissue out with further ring forceps and used banjo curettage to obtain the last bits. These were removed from the field. Once this was completed, bleeding from the cervical os was noted to be just slight oozing. I explored once more with both with a bimanual exam as well as another pass with curette and found that the uterus was again starting to clamp down and no further tissue was obtained with curettage. Once I was satisfied that the placental tissue was removed, I ended the procedure and removed all instruments. The patient tolerated the procedure well. Sponge, lap, and needle counts were correct x2, and the patient was taken to recovery in stable condition. DICTATING PHYSICIAN: MARSHAL TUBBS M.D. [id number] PHY#: [id number] ID: [id number] JOB#: [id number] ACCT: [id number] cc:MARSHAL TUBBS M.D. >
[2016-10-24 03:54] VITALS: BP 98/65
[2016-10-24] MEDS: FENTANYL CITRATE INJ/PF 100 MCG/2 ML AMPUL IV PRN ×6 (04:58→05:07)
[2016-10-24] MEDS: DIPHENHYDRAMINE HCL 50 MG/ML VIAL IV PRN ×2 (04:58→05:07)
[2016-10-24] MEDS: MORPHINE SULFATE 10 MG/ML INJ IV PRN ×2 (04:58→05:07)
[2016-10-24] MEDS: PROMETHAZINE HCL INJ 25 MG/1 ML VIAL IV PRN ×2 (04:58→05:07)
[2016-10-24] MEDS: MEPERIDINE HCL/PF INJ 25 MG/1 ML DISP.SYRIN IV PRN ×2 (04:58→05:07)
[2016-10-24] MEDS: RINGERS SOLUTION,LACTATED 1,000 ML IV PRN ×2 (04:58→05:07)
[2016-10-24] MEDS: NORMAL SALINE 250 ML IV PRN ×2 (05:01→05:07)
[2016-10-24] MEDS ORDERED: AMPICILLIN SOD/SULBACTAM 3 GM VIAL ONE (08:00)
[2016-10-24 08:49] LABS: HEMATOCRIT 29.7 % (36.0-47.0); HEMOGLOBIN 10.2 g/dL (12.0-15.5); HGB HCT DIFFERENCE 0.9; MEAN CORPUSCULAR HEMOGLOBIN 28.6 pg (27.0-33.4); MEAN CORPUSCULAR HGB CONC 34.4 g/dL (32.0-36.0); MEAN CORPUSCULAR VOLUME 83 fl (80-97); RED BLOOD COUNT 3.58 10^6/uL (3.72-5.28); RED CELL DISTRIBUTION WIDTH 13.7 % (11.5-14.0); WHITE BLOOD COUNT 21.2 10^3/uL (4.0-10.5)
[2016-10-24 09:22] LABS: BASOPHILS % (MANUAL) 0 % (0-2); EOSINOPHILS % (MANUAL) 0 % (0-6); LYMPHOCYTES % (MANUAL) 5 % (13-45); TOTAL CELLS COUNTED 100
[2016-10-24 09:23] LABS: RBC MORPHOLOGY COMMENT NORMO-CYTIC/CHROMIC
--- NOTE | 2016-10-24 11:08 | PDOC DISCHARGE SUMMARY ---
Final Diagnosis Discharge Date: 10/24/16 - Final Diagnosis (1) Intrauterine , less than 22 weeks Is this a current diagnosis for this admission?: Yes (2) Intrauterine in , delivered Is this a current diagnosis for this admission?: Yes Discharge Data - Discharge Medication Home Medications: Indomethacin [Indocin 25 Mg Capsule] 25 mg PO TID #30 capsule 10/15/16 Sucralfate [Carafate Susp 1 Gm/10 Ml Udcup] 1 gm PO DAILY #30 udc 10/15/16 Methyldopa [Aldomet 250 mg Tablet] 250 mg PO Q12 10/22/16 Vit/Iron Fumarate/FA [ Tablet] 1 tab PO DAILY 10/22/16 Gestational Age: 20 Reason(s) for Admission: Induction of Labor, Demise Procedures: Ultrasound Intrapartum Procedure(s): Spontaneous Vaginal Delivery Intrapartum Procedure Note: D&C for delivery of placenta Complication(s): Hemorrhage-Retained Placenta - Diagnosis Test Laboratory: Temp Pulse Resp BP Pulse Ox 98.5 F 72 16 98/65 L 10/24/16 03:54 10/24/16 03:54 10/24/16 03:54 10/24/16 03:54 10/22/16 10/22/16 10/23/16 16:05 16:42 07:20 RBC 4.39 3.67 L Hgb 12.7 10.8 L Hct 37.2 30.9 L Urine Opiates Screen NEGATIVE 10/23/16 10/24/16 21:16 08:06 RBC 2.97 L 3.58 L Hgb 8.7 L D 10.2 L Hct 24.9 L 29.7 L Urine Opiates Screen - Discharge information/Instructions Discharge Activity: Activity As Tolerated, Balance Activity w/Rest, Pelvic Rest Discharge Diet: As Tolerated, Regular Disposition: HOME, SELF-CARE Follow up with: [facility] in: 2, Weeks
--- NOTE | 2016-10-24 12:05 | Admission Physical ---
Datetime Report Generated by CPN: 10/24/2016 12:05 CURRENT ADMISSION Chief Complaint: Suspected Ruptured Membranes Indication for Induction: PROM Admit Plan: Admit to Unit ALLERGIES Medication Allergies: No Medication Allergies: No Known Allergies (10/22/2016) Latex: No Latex Allergies Food Allergies: None Environmental Allergies: None OBSTETRICAL HISTORY EDC: 03/11/2017 00:00 : 1 Para: 0 Term: 0 : 0 SAB: 0 IAB: 0 Ectopic: 0 Livin Cesareans: 0 VBACs: 0 Multiple Births: 0 Gestational Diabetes: No Rh Sensitization: No Incompetent Cervix: No CHUY: No Infertility: No ART Treatment: No Uterine Anomaly: No IUGR: No Hx Previous C/S: No Macrosomia: No Hx Loss/Stillborn: No PIH: No Hx : No Placenta Previa/Abruption: No Depression/PP Depression: No PTL/PROM: Yes Post Hemorrhage: No Current Procedures: Ultrasound Obstetrical History Comments: G1 - current - pPROM, uterine fibroids SEE RECORDS Alcohol: No Marijuana : No Cocaine: No Other Illicit Drugs: No Cigarettes: Never Smoker. 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: No Heart Disease: No Hosp/Surgery: No Autoimmune Disorder: No Anesthetic Complications: No Kidney Disease: No Abnormal Pap Smear: No Neuro/Epilepsy: No Psychiatric Disorders: No Other Medical Diseases: No Hepatitis/Liver Disease: No Significant Family History: No Varicosities/Phlebitis: No Trauma/Violence : No Thyroid Dysfunction: No INFECTIOUS HISTORY Gonorrhea: No Genital Herpes: No Chlamydia: No Tuberculosis: No Syphilis: No Hepatitis: No HIV/AIDS Exposure: No Rash or Viral Illness: No HPV: No PHYSICAL EXAM General: Normal HEENT: Normal Neurologic: Normal Thyroid: Normal Heart: Normal Lungs: Normal Breast: Normal Back: Normal Abdomen: Normal Genitourinary Exam: Normal Extremities: Normal DTRs: Normal Pelvic Type: Adequate Vital Signs: Reviewed VAGINAL EXAM Dilatation: 1 Effacement: 25 Station: -3 MEMBRANES Membranes: Ruptured Amniotic Fluid Color: Clear FETUS A EGA: 20.0 Monitoring: External US FHR- Baseline: 154 Admit Comment: 21 yo presents from home with suspected rupture of membranes pt reports gush this afternoon around 1430- clear fluid EDC 03/11/17 EGA 20 weeks abdomen nontender FHts per u/s 152 VSS spec exam shows fluid in vaginal vault/ bloody show cervix 50/-2 soft pPROM CHTN uterine fibroids RH neg stat u/s to bedside confirms ahydramnios with heart tones- 152 admit labs reviewed with Dr. reyes plan of care- calling [facility] if [facility] will accept pprom if not, we will keep pt here and transfer to abx for latency at 23 weeks weekly ultrasounds daily cbc PLANS FOR LABOR AND DELIVERY Labor and Delivery: None Pain Management: Medications; Epidural Feeding Preference: none Circumcision: N/A INFORMED CONSENT Informed Consent Obtained: Vaginal Delivery; Risks, Benefits and Alternatives Discussed Assignment: Flower Reyes MD Signature: with User ID: [email or web address] : with User ID: [email or web address]
--- NOTE | 2016-10-24 12:31 | Delivery Summary ---
Del Sum A-C Datetime Report Generated by CPN: 10/24/2016 12:31 ADMISSION DATA Chief Complaint: Suspected Ruptured Membranes Indication for Induction: PROM Admit Provider Comments: 21 yo presents from home with suspected rupture of membranes pt reports gush this afternoon around 1430- clear fluid EDC 03/11/17 EGA 20 weeks abdomen nontender FHts per u/s 152 VSS spec exam shows fluid in vaginal vault/ bloody show cervix /-2 soft pPROM CHTN uterine fibroids RH neg stat u/s to bedside confirms ahydramnios with heart tones- 152 admit labs reviewed with Dr. pride plan of care- calling [facility] if [facility] will accept pprom if not, we will keep pt here and transfer to abx for latency at 23 weeks weekly ultrasounds daily cbc DELIVERY PERSONNEL Delivery Doctor:: Rosalind Estevez MD Labor and Delivery Nurse:: Marita Peng, RN MATERNAL INFORMATION Medications After Delivery: Pitocin Drip 20 Units/1000ml NSS Estimated Blood Loss (ml): 700 Maternal Complications: Premature Rupture of Membranes; Chorioamnionitis Provider Comments: fetus delivered without difficulty. placenta retained and umbilical cord evulsed. unsuccessful attempt at [facility] for placenta. will proceed to OR for D_C for retained POC. LABOR SUMMARY EDC: 03/11/2017 00:00 No. Babies in Womb: 0 Attempted: No Labor Anesthesia: IV Sedation LABOR INFORMATION Reason for Induction: Demise Cervical Ripening Agents: Cytotec @ (Annotations: 100 mcg po.) Oxytocin: N/A Steroids Given: None Reason Steroids Not Administered: Not Applicable MEMBRANES Membranes Rupture Method: Spontaneous Rupture of Membranes: 10/22/2016 14:30 Length of Rupture (hr): 29.07 Amniotic Fluid Color: Clear Amniotic Fluid Amount: Scant Amniotic Fluid Odor: Normal STAGES OF LABOR Stage 3 hr: 2 Stage 3 min: 2 VAGINAL DELIVERY Episiotomy: None Laceration Extension: N/A Laceration Type: None Laceration Repair: Not Applicable Sponge Count Correct: N/A Sharps Count Correct: N/A CSECTION DELIVERY Primary Indication: N/A Secondary Indication: N/A CSection Incidence: N/A Labor: N/A Elective: N/A CSection Incision: N/A BABY A INFORMATION Infant Delivery Date/Time: 10/23/2016 19:34 Method of Delivery: Vaginal Born in Route : No : N/A Forceps: N/A Vacuum Extraction: N/A Shoulder Dystocia : No PRESENTATION/POSITION BABY A Presentation: Other Breech Presentation: N/A PLACENTA INFORMATION BABY A Placenta Delivery Time : 10/23/2016 21:36 (Annotations: Data stored by [facility] on behalf of user) Placenta Method of Delivery: Curettage Placenta Status: Retained SCORES BABY A Heart Rate 1 min: Absent Resp Effort 1 min: Absent Reflex Irritability 1 min: No Response Muscle Tone 1 min: Flaccid Color 1 min: Blue/Pale Resuscitation Effort 1 min: N/A SCORE 1 MIN: 0 Heart Rate 5 min: Absent Resp Effort 5 min: Absent Reflex Irritability 5 min: No Response Muscle Tone 5 min: Flaccid Color 5 min: Blue/Pale Resuscitation Effort 5 min: N/A SCORE 5 MIN: 0 INFANT INFORMATION BABY A Gestational Age at Delivery: 20.1 Gestational Status: - <34 Weeks Infant Outcome : Sex: Male WEIGHT/LENGTH BABY A Birthweight (gm): 332 Infant Weight (lb): 0 Infant Weight (oz): 12 Length (in): 10.25 Length (cm): 26.04 CORD INFORMATION BABY A Cord Blood Taken: N/A ASSESSMENT BABY A Complications- Other: stillborn BABY B INFORMATION : N/A SIGNATURES Signature: with User ID: [email or web address]
--- NOTE | 2016-10-24 19:01 | L&D Flow Sheet ---
LD Flowsheet Datetime Report Generated by CPN: 10/24/2016 19:00 Datetime: 10/24/2016 11:57 Pain Scale: 0 ([place], RNC) Pain Presence: None/Denies ([place], RNC) Pain Type: N/A ([place], RNC) Pain Assessment Comments: denies pain on discharge ([place], RNC) Datetime: 10/24/2016 11:20 NBP Sys/Kayy/Mean (mmHg): 108 (QS system process) : 65 (QS system process) : 80 (QS system process) Pulse: 84 (QS system process) Respirations: 17 ([place], RNC) Temperature (F): 97.9 ([place], RNC) Temperature (C): 36.6 (QS system process) Temperature Route: Oral ([place], RNC) Datetime: 10/24/2016 10:50 Pain Scale: 0 ([place], RNC) Pain Presence: None/Denies ([place], RNC) Pain Type: N/A ([place], RNC) Datetime: 10/24/2016 08:12 NBP Sys/Kayy/Mean (mmHg): 110 (QS system process) : 66 (QS system process) : 82 (QS system process) Pulse: 78 (QS system process) Pulse: 72 (QS system process) Respirations: 16 ([place], RNC) SpO2 (%): 97 (QS system process) Temperature (F): 99.0 ([place], RNC) Temperature (C): 37.2 (QS system process) Temperature Route: Oral (GABRIELE Coronado) Datetime: 10/24/2016 07:50 Stage of : Recovery (GABRIELE Coronado) Temperature Route: Oral (GABRIELE Coronado) Pain Scale: 0 (GABRIELE Coronado) Pain Presence: None/Denies (GABRIELE Coronado) Pain Type: N/A (GABRIELE Coronado) Pain Relief Measures: Comfort Measures (Annotations: ice pack to perineum) (GABRIELE Coronado) Pain Assessment Comments: sleeping with no apparent distress noted (GABRIELE Coronado)
--- NOTE | 2016-10-25 06:01 | L&D General Admission ---
General Admit Datetime Report Generated by CPN: 10/25/2016 06:00 INFORMATION Patient Age: 31 (10/22/2016 15:18:QS system process) EDC: 03/11/2017 00:00 (10/22/2016 15:49:GABRIELE Candelaria) EDC per Ultrasound: 03/11/2017 00:00 (10/22/2016 15:49:GABRIELE Candelaria) LMP: 05/25/2016 00:00 (10/22/2016 15:49:Sonali Rudd RN) : 1 (10/22/2016 15:49:Sonali Rudd RN) Para: 1 (10/24/2016 12:12:GABRIELE Coronado) Term: 0 (10/22/2016 15:49:Sonali Rudd RN) : 0 (10/22/2016 15:49:Sonali Rudd RN) Spontaneous Abortions: 0 (10/22/2016 15:49:Sonali Rudd RN) Induced Abortions: 0 (10/22/2016 15:49:Sonali Rudd RN) Livin (10/22/2016 15:49:Sonali Rudd RN) Cesareans: 0 (10/22/2016 15:49:Sonali Rudd RN) VBACs: 0 (10/22/2016 15:49:Sonali Rudd RN) Ectopic: 0 (10/22/2016 15:49:Sonali Rudd RN) Multiple Births: 0 (10/22/2016 15:49:Sonali Rudd RN) Baby, Number in Womb: 0 (10/24/2016 12:12:GABRIELE Coronado) CARE Primary Meter Attendant: [facility] (10/22/2016 15:49:GABRIELE Candelaria) Month of 1st Visit: 08/2016 (10/22/2016 15:49:Sonali Rudd RN) Adequate Care: Yes (10/22/2016 15:49:GABRIELE Candelaria) Prepregnancy Weight (lb): 207 (10/22/2016 15:49:Sonali Rudd RN) Prepregnancy Weight (kg): 94.1 (10/22/2016 15:49:QS system process) Height (in): 71 (10/24/2016 11:08:QS system process) ALLERGIES Medication Allergy: No (10/22/2016 15:49:Sonali Rudd RN) Medication Allergies: No Known Allergies (10/22/2016) (10/22/2016 18:50:QS system process) Latex Allergy: No Latex Allergies (10/22/2016 15:49:Sonali Rudd RN) Food Allergies: None (10/22/2016 15:49:Sonali Rudd RN) Environmental Allergies: None (10/22/2016 15:49:Sonali Rudd RN) COMMUNICATION Primary Language: Turkish (10/22/2016 15:49:Sonali Rudd RN) Medical Tx Preferred Language: Turkish (10/22/2016 15:49:Sonali Rudd RN) Communication Barrier(s): None (10/22/2016 15:49:Sonali Rudd RN) DEMOGRAPHICS Address: [address] [place] [id number] (10/22/2016 15:18:QS system process) Zipcode: [id number] (10/22/2016 15:18:QS system process) Home (10/22/2016 15:18:QS system process) Work (10/22/2016 15:18:QS system process) SSN: [id number] (10/22/2016 15:18:QS system process) Next of Kin Name: EMILIANO FIGUEROA (10/22/2016 15:18:QS system process) Next of Kin (10/22/2016 15:18:QS system process) Next of Kin Relationship: MO (10/22/2016 15:18:QS system process) Date of : 1985 (10/22/2016 15:18:QS system process) Marital Status: Single (10/22/2016 15:18:QS system process) Sex: Female (10/22/2016 15:18:QS system process) Race: (10/22/2016 15:18:QS system process) Ethnicity: Non- or (10/22/2016 15:18:QS system process) Anabaptist: Pentecostalism (10/22/2016 15:18:QS system process) DRUG AND ALCOHOL USE Alcohol: No (10/22/2016 15:49:Sonali Rudd RN) Cigarettes: Never Smoker. [id number] (10/22/2016 15:49:Sonali Rudd RN) Marijuana: No (10/22/2016 15:49:Sonali Rudd RN) Cocaine: No (10/22/2016 15:49:Sonali Rudd RN) Other Illicit Drugs: No (10/22/2016 15:49:Sonali Rudd RN) VACCINE HISTORY Influenza Vaccine: Yes (10/22/2016 15:49:Sonali Rudd RN) Influenza Date: 08/29/2016 (10/22/2016 15:49:Sonali Rudd RN) Pneumococcal Vaccine: No (10/22/2016 15:49:Sonali Rudd RN) Tetanus Vaccine: No (10/22/2016 15:49:Sonali Rudd RN) Tdap Vaccine: No (10/22/2016 15:49:Sonali Rudd RN) Hepatitis B Vaccine: Yes (10/22/2016 15:49:Sonali Rudd RN) Retort Operator: Other (10/22/2016 15:49:GABRIELE Coronado) Feeding Preference: none (10/22/2016 15:49:GABRIELE Coronado) Circumcision: N/A (10/22/2016 15:49:GABRIELE Coronado) Classes Attended: No (10/22/2016 15:49:GABRIELE Coronado) Tubal Ligation: No (10/22/2016 15:49:Sonali Rudd RN) Tubal Authorization Signed: N/A (10/22/2016 15:49:Sonali Rudd RN) Consent: N/A (10/22/2016 15:49:Sonali Rudd RN) Consent Signed: N/A (10/22/2016 15:49:Sonali Rudd RN) Pain Management Plans: Medications; Epidural (10/22/2016 15:49:Sonali Rudd RN) Plans for Labor and Delivery: None (10/22/2016 15:49:Sonali Rudd RN) Support Person Relationship: Mother (10/22/2016 15:49:GABRIELE Coronado) Cultural/Spritual Practice: No (10/22/2016 15:49:Sonali Rudd RN) Spir/Cult Dietary Needs: No (10/22/2016 15:49:Sonali Rudd RN) LIVING SITUATION/DISCHARGE PLAN Living Arrangements: House (10/22/2016 15:49:Sonali Rudd RN) Adequate Access to:: Electric; Heat; Refrigeration; Plumbing/Running water; Phone; Transportation (10/22/2016 15:49:Sonali Rudd RN) WIC Program: Pham (10/22/2016 15:49:Sonali Rudd RN) Discharge Computer Systems Auditor Person: FOB, mother (10/22/2016 15:49:Sonali Rudd RN) Person to Help after Discharge: FOB, mother (10/22/2016 15:49:Sonali Rudd RN) Currently Using Commun Resources: No (10/22/2016 15:49:Sonali Rudd RN) Outside Agency/It Service Continuity Supervisor: No (10/22/2016 15:49:Sonali Rudd RN) Car Seat for Discharge: N/A (10/22/2016 15:49:Sonali Rudd RN) Adoption Requested: No (10/22/2016 15:49:Sonali Rudd RN) Pt Contact w/infant Post : N/A (10/22/2016 15:49:Sonali Rudd RN) LABS Blood Type: A Negative (10/22/2016 15:49:Sonali Rudd RN) Antibody Screen: Neg (10/22/2016 15:49:Sonali Rudd RN) Hemoglobin: 10.2 L (10/24/2016 08:06:QS system process) Hematocrit: 29.7 L (10/24/2016 08:06:QS system process) MCV: 83 (10/24/2016 08:06:QS system process) RPR/VDRL: Nonreactive (10/22/2016 15:49:Sonali Rudd RN) HIV Exposure Test: Negative (10/22/2016 15:49:Sonali Rudd RN) Hepatitis B: Negative (10/22/2016 15:49:Sonali Rudd RN) Rubella: Immune (10/22/2016 15:49:Sonali Rudd RN) OB/PREVIOUS HISTORY LMP: 05/25/2016 00:00 (10/22/2016 15:49:Sonali Rudd RN) Previous Procedures: None (10/22/2016 15:49:Sonali Rudd RN) Current Procedures: Ultrasound (10/22/2016 15:49:Sonali Rudd RN) History of Previous : No (10/22/2016 15:49:Sonali Rudd RN) History of Gestational Diabetes: No (10/22/2016 15:49:Sonali Rudd RN) History of PIH: No (10/22/2016 15:49:Sonali Rudd RN) History of Incompetent Cervix: No (10/22/2016 15:49:Sonali Rudd RN) History of Placenta Previa/Abrup: No (10/22/2016 15:49:Sonali Rudd RN) History of Macrosomia: No (10/22/2016 15:49:Sonali Rudd RN) History of IUGR: No (10/22/2016 15:49:Sonali Rudd RN) History of Hemorrhage: No (10/22/2016 15:49:Sonali Rudd RN) History of Loss/Stillborn: No (10/22/2016 15:49:Sonali Rudd RN) History of : No (10/22/2016 15:49:Sonali Rudd RN) History of D (Rh) Sensitization: No (10/22/2016 15:49:Sonali Rudd RN) History Recurrent Loss/Stillborn: No (10/22/2016 15:49:Sonali Rudd RN) History Depression/PP Depression: No (10/22/2016 15:49:Sonali Rudd RN) History of Uterine Anomaly/CHUY: No (10/22/2016 15:49:Sonali Rudd RN) History of Infertility: No (10/22/2016 15:49:Sonali Rudd RN) History of ART Treatment: No (10/22/2016 15:49:Sonali Rudd RN) History of CHUY: No (10/22/2016 15:49:Sonali Rudd RN) Comments Obstetrical History: G1 - current - pPROM, uterine fibroids (10/22/2016 15:49:Sonali Rudd RN) MEDICAL HISTORY Med Hx Diabetes: No (10/22/2016 15:49:Sonali Rudd RN) Med Hx Hypertension: No (10/22/2016 15:49:Vero Paul RN) Med Hx Heart Disease: No (10/22/2016 15:49:Sonali Rudd RN) Med Hx Autoimmune Disorder: No (10/22/2016 15:49:Sonali Rudd RN) Med Hx Kidney Disease/UTI: No (10/22/2016 15:49:Sonali Rudd RN) Med Hx Neurologic/Epilepsy: No (10/22/2016 15:49:Sonali Rudd RN) Med Hx Psychiatric Disorders: No (10/22/2016 15:49:Sonali Rudd RN) Med Hx Hepatitis/Liver Disease: No (10/22/2016 15:49:Sonali Rudd RN) Med Hx Varicosities/Phlebitis: No (10/22/2016 15:49:Sonali Rudd RN) Med Hx Thyroid Dysfunction: No (10/22/2016 15:49:Sonali Rudd RN) Med Hx Trauma/Violence: No (10/22/2016 15:49:Sonali Rudd RN) Med Hx Blood Transfusion: No (10/22/2016 15:49:Sonali Rudd RN) Med Hx Pulmonary (Asthma,TB): No (10/22/2016 15:49:Sonali Rudd RN) Med Hx Breast: No (10/22/2016 15:49:Sonali Rudd RN) Med Hx CABINET MAKER Surgery: No (10/22/2016 15:49:Sonali Rudd RN) Med Hx Hospitalization/Surgery: No (10/22/2016 15:49:Sonali Rudd RN) Med Hx Anesthetic Complications: No (10/22/2016 15:49:Sonali Rudd RN) Med Hx Abnormal Pap Smear: No (10/22/2016 15:49:Sonali Rudd RN) Other Medical Diseases: No (10/22/2016 15:49:Sonali Rudd RN) Med Hx Significant Family Hx: No (10/22/2016 15:49:Sonali Rudd RN) INFECTIOUS HISTORY Inf Hx Gonorrhea: No (10/22/2016 15:49:Sonali Rudd RN) Inf Hx Chlamydia: No (10/22/2016 15:49:Sonali Rudd RN) Inf Hx Syphilis: No (10/22/2016 15:49:Sonali Rudd RN) Inf Hx HIV/AIDS: No (10/22/2016 15:49:Sonali Rudd RN) Inf Hx Human Papilloma Virus: No (10/22/2016 15:49:Sonali Rudd RN) Inf Hx Pt/Partner Genital Herpes: No (10/22/2016 15:49:Sonali Rudd RN) Inf Hx Tuberculosis/Exposure: No (10/22/2016 15:49:Sonali Rudd RN) Inf Hx Hepatitis B,C: No (10/22/2016 15:49:Sonali Rudd RN) Inf Hx Rash or Viral Illness: No (10/22/2016 15:49:Sonali Rudd RN) GENETIC HISTORY Gen Hx Age >=35 at SATINDER: No (10/22/2016 15:49:Sonali Rudd RN) Gen Hx Thalassemia: No (10/22/2016 15:49:Sonali Rudd RN) Gen Hx Congenital Heart Defect: No (10/22/2016 15:49:Sonali Rudd RN) Gen Hx Neural Tube Defect: No (10/22/2016 15:49:Sonali Rudd RN) Gen Hx Down's Syndrome: No (10/22/2016 15:49:Sonali Rudd RN) Gen Hx Sher-Sachs: No (10/22/2016 15:49:Sonali Rudd RN) Gen Hx Albert: No (10/22/2016 15:49:Sonali Rudd RN) Gen Hx Familial Dysautonomia: No (10/22/2016 15:49:Sonali Rudd RN) Gen Hx Sickle Cell Disease/Trait: No (10/22/2016 15:49:Sonali Rudd RN) Gen Hx Hemophilia/Blood Disorder: No (10/22/2016 15:49:Sonali Rudd RN) Gen Hx Muscular Dystrophy: No (10/22/2016 15:49:Sonali Rudd RN) Gen Hx Cystic Fibrosis: No (10/22/2016 15:49:Sonali Rudd RN) Gen Hx Huntingtons Chorea: No (10/22/2016 15:49:Sonali Rudd RN) Gen Hx Mental Retardation/Autism: No (10/22/2016 15:49:Sonali Rudd RN) Gen Hx Tested for Fragile X: No (10/22/2016 15:49:Sonali Rudd RN) Gen Hx Other Inher/Chromosomal: No (10/22/2016 15:49:Sonali Rudd RN) Gen Hx Maternal Metabolic DO: No (10/22/2016 15:49:Sonali Rudd RN) Gen Hx Pt Father or FOB Defect: No (10/22/2016 15:49:Sonali Rudd RN) Gen Hx Other Genetic History: No (10/22/2016 15:49:Sonali Rudd RN) Gen Hx Drugs/Meds since LMP: No (10/22/2016 15:49:Sonali Rudd RN)
--- NOTE | 2016-10-25 06:01 | L&D Current Admission ---
Current Admit Datetime Report Generated by CPN: 10/25/2016 06:00 ADMISSION INFORMATION Current Admit Date/Time: 10/22/2016 16:30 (10/22/2016 16:30:Sonali Rudd RN) Reason for Admission: Rupture of Membranes; Labor (10/22/2016 16:30:Sonali Rudd RN) Chief Complaint: Suspected Rupture of Membranes (10/22/2016 15:55:GABRIELE Candelaria) Medications During : Methyldopa (Aldomet); Vitamin (10/22/2016 16:30:Sonali Rudd RN) EGA per Dates: 20.0 (10/22/2016 16:30:QS system process) EGA per US: 20.0 (10/22/2016 16:30:QS system process) Method of Arrival: Wheelchair (10/22/2016 16:30:Sonali Rudd RN) Reason for Induction: Not Applicable (10/22/2016 16:30:Sonali Rudd RN) Records Available: Yes (10/22/2016 16:30:Sonali Rudd RN) General Admission Information: Reviewed; Updated; Confirmed (10/22/2016 16:30:Sonali Rudd RN) General Admission Reviewed By: Brandyn Rudd RN (10/22/2016 16:30:Sonali Rudd RN) BELONGINGS/ADVANCED DIRECTIVES Valuables/Personal Effects: None (10/22/2016 16:30:Sonali Rudd RN) Other Belongings: See belongings consent (10/22/2016 16:30:Sonali Rudd RN) Disposition of Belongings: Kept with Patient (10/22/2016 16:30:Sonali Rudd RN) Advance Direct for Healthcare: No, and Wants No Information (10/22/2016 16:30:Sonali Rudd RN) Durable Power of Roofer: No (10/22/2016 16:30:Sonali Rudd RN) Living Will: No (10/22/2016 16:30:Sonali Rudd RN) Organ Donor: Yes (10/22/2016 16:30:Sonali Rudd RN) Pt Rights Information Given: Yes (10/22/2016 16:30:Sonali Rudd RN) Pt Understands Pt Rights: Yes (10/22/2016 16:30:Sonali Rudd RN) LEARNING ASSESSMENT Knowledge Level: Understands L_D Process; Understands Care Activities; Had Pre-Hospital Education; Understands Diagnosis (10/22/2016 16:30:Sonali Rudd RN) Barriers to Learning: Emotional State (10/22/2016 16:30:Sonali Rudd RN) Learning Readiness: Motivated (10/22/2016 16:30:Sonali Rudd RN) Learns Best By: 1 to 1 Instruction; Reading; Videos; Demonstration (10/22/2016 16:30:Sonali Rudd RN) Learning Needs: Labor and Delivery Process; Pain Management; Symptoms to Report; Treatment Plan; Medication; Diagnosis; Nutrition; Equipment; Care; Community Resources (10/22/2016 16:30:Sonali Rudd RN) DOMESTIC VIOLANCE SCREENING Dom Viol Threatened/Hurt: No (10/22/2016 16:30:Sonali Rudd RN) Hx of Abuse/Neglect past 2yrs: No (10/22/2016 16:30:Sonali Rudd RN) Feel Unsafe Going Home: No (10/22/2016 16:30:Sonali Rudd RN) Addt'l Observ Indicating Abuse: No (10/22/2016 16:30:Sonali Rudd RN) Reason Unable to Complete Screen: N/A, Screen Completed (10/22/2016 16:30:Sonali Rudd RN) Considered Personal Harm/Suicide: No (10/22/2016 16:30:Sonali Rudd RN) NUTRITIONAL/FUNCTIONAL SCREENING Problem with Appetite >5 Days: No (10/22/2016 16:30:Sonali Rudd RN) Chew/Swallow Difficulties: No (10/22/2016 16:30:Sonali Rudd RN) Inappropriate Wt Gain/Loss: No (10/22/2016 16:30:Sonali Rudd RN) Presence Skin Breakdown/Ulcer: No (10/22/2016 16:30:Sonali Rudd RN) Special Diet: No (10/22/2016 16:30:Sonali Rudd RN) Pt Requests Custom Shop Worker Visit: No (10/22/2016 16:30:Sonali Rudd RN) Hx of Any of the Following?: N/A (10/22/2016 16:30:Sonali Rudd RN) New Diagnosis of: N/A (10/22/2016 16:30:Sonali Rudd RN) Requires Assist w/Ambulation: No (10/22/2016 16:30:Sonali Rudd RN) Uses Assist Device to Ambulate: No (10/22/2016 16:30:Sonali Rudd RN) Pt Requires Help w/ADL's: No (10/22/2016 16:30:Sonali Rudd RN)
--- NOTE | 2016-10-25 06:16 | L&D Care Plan ---
LD CARE PLANS Datetime Report Generated by CPN: 10/25/2016 06:15 Datetime: 10/22/2016 18:29 Pain State: Actual (Sonali Rudd RN) Related To: Labor and Delivery Process; Complication(s) of ; Treatment and Procedures (Sonali Rudd RN) Goal(s): Patients Pain will be Assessed and Managed; Patient will Verbalize Adequate Relief of Pain or the Ability to [place] with Current Pain (Sonali Rudd RN) Interventions: Assess Pain Severity on Scale of 0 (None) to 5 (Severe); Assess Type, Location and Intensity of Pain Each Time Client Reports Discomfort and Notify Provider if Unusal Pain Develops; Encourage Proper Breathing and Relaxation Techniques; Offer Alternatives Such as Repositioning, Calm Environment, Massages, Diversional Activities, Ice Pack, Splinting, and Ambulation; Administer Analgesics as Ordered; Assist with Epidural Placement as Appropriate; Evaluate Therapeutic Effectiveness of Medication and Treatments (Sonali Rudd RN) Outcome: Patient will Report Absence or Relief of Pain Consistent with Established Pain Goal (Sonali Rudd RN) Status: Ongoing (Sonali Rudd RN) Outcome: Patient will have a Decrease in Signs and Symptoms of Discomfort (Sonali Rudd RN) Status: Ongoing (Sonali Rudd RN) Outcome: Pain will be Controlled During Procedures (Sonali Rudd RN) Status: Ongoing (Sonali Rudd RN) Anxiety State: Actual (Sonali Rudd RN) Related To: Labor and Delivery Process; Perceived or Actual Threat to ; Fear of Unknown; Situational Crisis; Medical Interventions (Sonali Rudd RN) Goal(s): Patient will have Decreased Anxiety and be able to Function at Acceptable Levels (Sonali Rudd, SHUKRI) Interventions: Assess Verbal and Nonverbal Behavioral Indicators of Anxiety; Assist Patient to Identify and Verbalize Symptoms of Anxiety; Identify and Demonstrate Techniques to Control Anxiety; Assist Patient with Coping Mechanisms to Manage Anxiety; Provide Theraputic Touch for the Patient; Explain to Patient, Using a Calm Reassuring Approach and Nonmedical Terms, All Activities, Procedures, and Concerns; Instruct Patient and Family about Post Discharge Care, Limitations, Symptoms to Report and Resources Available (Sonali Rudd RN) Outcome: Patient will Identify, Verbalize and Demonstrate Techniques to Control Anxiety (Sonali Rudd RN) Status: Ongoing (Sonali Rudd RN) Outcome: Patient's Posture, Facial Expressions, Gestures and Activity Level will Reflect Decreased Anxiety (Sonali Rudd RN) Status: Ongoing (Sonali Rudd RN) Outcome: Patient will Verbalize a Sense of Control and/or Acceptance of the Situation (Sonali Rudd RN) Status: Ongoing (Sonali Rudd RN) Outcome: Patient will Identify and Utilize Support Person (Sonali Rudd RN) Status: Ongoing (Sonali Rudd RN) Knowledge Deficit State: Actual (Sonali Rudd RN) Related To: Labor and Delivery Process; Treatment and Procedures (Sonali Rudd RN) Goal(s): Patient will Accurately Verbalize Understanding of Plan of Care and Treatment; Patient and Family will Accurately Verbalize Understanding of the Disease Process (Sonali Rudd RN) Interventions: Assess Motivation and Willingness of Patient/Family to Learn; Assess Preferred Learning Mode: One to One Instruction, Reading, Videos, Group Discussion or Demonstration; Assess Barriers to Learning: Pain, Emotional State, Language Barrier, Cognitive Impairment, Visual or Hearing Deficits; Assess Patient and Family Knowledge of Disease Process, Medications and Treatment; Discuss Therapy and/or Treatment Options, Describe Rationale Behind Management, Therapy and Treatment Recommendations; Instruct Patient and Family on Signs and Symptoms to Report; Instruct Patient and Family on Medication Effects and Side Effects; Provide Appropriate and Timely Education Using Multiple Techniques; Provide Patient and Family with Support Group Information and Resources; Give Clear and Thorough Explanations and Demonstrations (Sonali Rudd RN) Outcome: Patient and Family will Verbalize Understanding of Condition, Treatment and Signs and Symptoms to Report (Sonali Rudd RN) Status: Ongoing (Sonali Tobin, RN) Outcome: Patient will Identify Perceived Learning Needs and Express Motivation to Learn (Sonali Rudd RN) Status: Ongoing (Sonali Rudd RN) Outcome: Patient will Verbalize Understanding of Desired Content, and/or Performs Desired Skill Prior to Discharge (Sonali Rudd RN) Status: Ongoing (Sonali Rudd RN) Infection State: Risk For (Sonali Rudd RN) Related To: Premature/Prolonged Rupture of Membranes (Sonali Rudd RN) Goal(s): The Patient will be Free of Infection, Vital Signs Stable and Lab Work within Normal Parameters (Sonali Rudd RN) Interventions: Instruct and Reinforce Proper Handwashing, Hygiene, and Care Techniques to Patient and Family; Monitor Vital Signs; Monitor Patient for the Following Signs of Infection: Fever, Abdominal Tenderness, Unusual Discharge; Monitor Aminiotic Fluid, Urine and Lochia for Color and Odor; Observe Wounds, Incisions and Invasive Line Sites for Redness, Drainage and Edema; Assess IV Sites per Hospital Policy; Monitor Lab and Test Results and Notify Provider of Abnormal Findings; Assess Nutritional Status and Promote Good Nutrition (Sonali Rudd RN) Outcome: Patient will Remain Free of Infection (Sonali Rudd RN) Status: Ongoing (Sonali Rudd RN) Outcome: Infection will be Recognized Early to Allow for Prompt Treatment (Sonali Rudd RN) Status: Ongoing (Sonali Rudd RN) Outcome: Patient will have Vital Signs Within Expected Range (Sonali Rudd RN) Status: Ongoing (Sonali Rudd RN) Fluid Volume State: Risk For (Sonali Rudd RN) Related To: Disease Process (Sonali Rudd RN) Goal(s): Patient will Achieve and Maintain a Balanced Fluid Volume Status; Hemodynamically Stable (Sonali Rudd RN) Interventions: Monitor Vital Signs; Auscultate Breath Sounds; Monitor Patient for Skin Turgor, Mucous Membranes, Dry Skin, Weakness, Headaches and Confusion; Provide Oral Fluids as Ordered; Initiate and Maintain Intravenous Fluids as Ordered; Monitor Intake and Output as Indicated Per Patient Status; Accurately Measure Blood Loss; Monitor Lab and Test Results as Obtained and Notify Provider of Abnormal Findings; Monitor Patient's Weight (Sonali Rudd RN) Outcome: Patient will have Clear Lung Sounds (Sonali Rudd RN) Status: Ongoing (Sonali Rudd RN) Outcome: Patient will have Vital Signs within Expected Range (Sonali Rudd RN) Status: Ongoing (Sonali Rudd RN) Outcome: Urine Output will be within Expected Range (Sonali Rudd RN) Status: Ongoing (Sonali Rudd RN) Outcome: Patient will have Minimal Generalized or Upper Extremity Edema (Sonali Rudd RN) Status: Ongoing (Sonali Rudd RN) Injury State: Risk For (Sonali Rudd RN) Related To: Labor and Delivery Process; Decreased Mobility (Sonali Rudd RN) Goal(s): Patient will Remain Free from Injury (Sonali Rudd, RN) Interventions: Monitoring as per Hospital Protocol; Assess Neurological Status; Perform Risk Assessment of Patients with Induction and ; Perform Fall Risk Assessment and Prevention per Hospital Protocol; Perform DVT Risk Assessment and Prophylaxis per Hospital Protocol; Ensure that Oxygen, Suction, and Resuscitation Medications and Equipment are Readily Available; Confirm Patient ID Prior to Procedure(s) and Medication Administration per Hospital Policy (Sonali Rudd RN) Outcome: Successful Fall Risk Prevention (Sonali Rudd RN) Status: Ongoing (Sonali Rudd RN) Outcome: Patient will Deliver without Adverse Sequela (Sonali Rudd RN) Status: Ongoing (Sonali Rudd RN) Outcome: Patient's Neurological Status will Remain Stable (Sonali Rudd RN) Status: Ongoing (Sonali Rudd RN) Impaired Skin Integrity State: Risk For (Sonali Rudd RN) Related To: Prolonged Bedrest (Sonali Rudd, SHUKRI) Goal(s): Patient will Maintain Optimal Skin Integrity, Free of Breakdown, Injury or Infection (Sonali Rudd, SHUKRI) Interventions: Complete Screening for Pressure Ulcer Risk and Initiate Protocol per Hospital Policy; Monitor Site of Skin Impairment for Color Changes, Redness, Swelling, Warmth, Pain or Other Signs of Infection; Encourage and Assist with Position Changes; Monitor Patient's Mobility Status; Provide Adequate Nutrition and Fluids; Teach Patient Appropriate Hygienic Care; Teach Patient/Family Skin Care Management (Sonali Rudd, RN) Outcome: Patient will not have Evidence of Injury Such as Skin Breakdown, Scrapes, Cuts, or Bruising (Sonali Rudd RN) Status: Ongoing (Sonali Rudd RN) Outcome: Patient will Report Any Altered Sensation or Pain at Site of Skin Impairment (Sonali uRdd RN) Status: Ongoing (Sonali Rudd RN) Outcome: Patients Incisions and Wounds will be without Signs or Symptoms of Infection (Sonali Rudd RN) Status: Ongoing (Sonali Rudd RN) Outcome: Patient will Demonstrate Understanding of Plan to Heal Skin and Prevent Reinjury and Verbalize Risk Factors (Sonali Rudd RN) Status: Ongoing (Sonali Rudd RN) Parenting Impaired State: Not Applicable (oSnali Rudd RN) Nutrition State: Risk For (Sonali Rudd RN) Related To: ; Prolonged Bedrest (Sonali Rudd RN) Goal(s): Patient will have an Intake of Nutrients Sufficient to Meet Metabolic Needs (Sonali Rudd RN) Interventions: Nutritional Screening and Assessment per Hospital Policy; Consult Percher for Further Assessment and Recommendations Regarding Food Preferences and Nutritional Support; Allow Patient to Plan and Order Diet when Possible; Monitor Laboratory Values That Indicate Nutritional Well-being; Consult Rn Psych for Nutritional Support Regarding Requirements; Document Actual Weight Initially and Weekly (Do Not Estimate); Encourage Patient Participation in Maintaining a Food Log as Indicated; Educate Patient on the Importance of Maintaining an Adequate Caloric Intake (Sonali Rudd RN) Outcome: Patient will Receive Adequate Calories and Fluid Volume to Meet Metabolic Needs (Sonali Rudd RN) Status: Ongoing (Sonali Rudd RN) Outcome: Patient will Select Foods or Meals that Support Adequate Nutrition (Sonali Rudd RN) Status: Ongoing (Sonali Rudd RN) Grieving State: Risk For (Sonali Rudd RN) Related To: Alteration in an Expected Outcome; IUFD and/or Loss; Perceived Loss of Any Sort (Sonali Rudd, RN) Goal(s): Patient and Family will Demonstrate Effective Coping And Or Grief Reaction (Sonali Rudd RN) Interventions: Support the Patient/Familys Expression of Pain; Identify Emotional and Spiritual Needs of Patient/Family; Create a Quiet and Comfortable Environment; Encourage Patient/Family to Talk About the Infant and Their Feelings About the Loss; Facilitate Patient/Family Spending Time With ; Support Patient/Family in Post Mortem Planning; Prepare a Memory Packet for Patient/Family; Inform Manager Java/Clergy of the Loss or Pending Loss; Identify Available Community Resources, Including Bereavement Groups; Provide Education Regarding Loss and Grieving (Sonali Rudd, SHUKRI) Outcome: Patient/Family will Identify the Meaning of the Loss to Themselves (Sonali Rudd RN) Status: Ongoing (Sonali Rudd RN) Outcome: Patient/Family will Express Their Grief in Culturally Appropriate Ways (Sonali Rudd RN) Status: Ongoing (Sonali Rudd RN) Outcome: Patient/Family will share Their Grief with Each Other and Support Persons (Sonali Rudd RN) Status: Ongoing (Sonali Rudd RN) Outcome: Patient/Family will have Spent Time With and/or Held Infant (Sonali Rudd RN) Status: Ongoing (Sonali Rudd RN) Outcome: Patient will Progress Through the Stages of Grief and Loss Without Dysfunctional Grieving (Sonali Rudd RN) Status: Ongoing (Sonali Rudd RN) Additional Care Plan State: Not Applicable (Sonali Rudd RN)
== END 2016-10-24 11:57 | disposition home or self-care (01) | DRG 770 ==
LOC: LC 15:18 → LR 16:29
PROVIDERS: ADMIT Student in an Organized Health Care Education/Training Program; ATTEND Student in an Organized Health Care Education/Training Program
PROC: 4A1HXCZ Monitoring of Products of Conception, Cardiac Rate, External Approach (ICD-10-PCS; 2016-10-22)
PROC: 10D17ZZ Extraction of Products of Conception, Retained, Via Natural or Artificial Opening (ICD-10-PCS; principal; 2016-10-23)
PROC: 30233N1 Transfusion of Nonautologous Red Blood Cells into Peripheral Vein, Percutaneous Approach (ICD-10-PCS; 2016-10-23)
PROC: 3E0234Z Introduction of Serum, Toxoid and Vaccine into Muscle, Percutaneous Approach (ICD-10-PCS; 2016-10-23)
DX: O02.1 Missed abortion (principal); O26.892 Other specified pregnancy related conditions, second trimester; Z67.11 Type A blood, Rh negative; O34.12 Maternal care for benign tumor of corpus uteri, second trimester; O42.912 Preterm premature rupture of membranes, unspecified as to length of time between rupture and onset of labor, second trimester; Z79.899 Other long term (current) drug therapy; Z3A.20 20 weeks gestation of pregnancy
CPT/HCPCS: 36415; 36430; 76815; 80307; 81001; 84112; 85025; 86592; 86850; 86900; 86901; 86920; 88305; 940; J0295; J0330; J2250; J2300; J2405; J2550; J2590; J2704; J2790; J3010; J3490; P9016